=== PATIENT | female | born 1945 | race Caucasian/White ===

== ENCOUNTER 2020-09-24 19:45 | Emergency (ER) | payer MEDICARE ==
--- OUTSIDE RECORDS SUMMARY | 2020-09-24 19:51 | XMS REPORT | Continuity of Care Document ---
:1945 Author Organization [facility] t Address [address] [place] [address] Care Team Providers Name Role Phone Oz Strauss MD Attending Clinician Problems This patient has no known problems. Allergies, Adverse Reactions, Alerts This patient has no known allergies or adverse reactions. Medications This patient has no known medications. Procedures This patient has no known procedures. Encounters Start End Encounter Admission Attending Care Care Encounter Source Date/Time Date/Time Type Type Clinicians Facility Department ID 2020-09-18 2020-09-18 Refill [place] [facility] [id number] 00:00:00 00:00:00 , [facility] [id number] M s and [id number] Adult [id number] Primary [facility] 2019-11-01 2019-11-01 Refill [place] Yvan [id number] 00:00:00 00:00:00 , [facility] [id number] M s and [id number] Adult [id number] Primary [facility] 2019-10-24 2019-10-24 Refill [place] Yvan [id number] 00:00:00 00:00:00 , [facility] [id number] M s and [id number] Adult [id number] Primary [facility] Results This patient has no known results.
--- OUTSIDE RECORDS SUMMARY | 2020-09-24 19:51 | XMS REPORT | Summary of Care ---
:1945 Author Organization [facility] Address [address] [place] [id number] Care Team Providers Name Role Phone Oz Strauss MD Primary Care Provider Reason for Visit Reason Comments Refill Request Encounter Details Date Type Department Care Team Description 09/18/2020 Refill [facility] & Jeanie Strauss, Refill Request Adult Primary Care- Yvan ROMERO 2019 [facility] [address] [address] [place] [address] [place] [address] Allergies Active Allergy Reactions Severity Noted Date Comments Aspirin Unknown - See comments 09/09/2005 Penicillins Unknown - See comments 09/09/2005 documented as of this encounter (statuses as of 09/19/2020) Medications Medication Sig Dispensed Refills Start Date End Date Status docusate 100 mg Take 1 capsule by 30 capsule 3 07/06/2019 Active capsuleIndications: mouth daily. Constipation, unspecified constipation type albuterol (PROAIR Inhale 2 Puffs 0 Active HFA) 90 mcg/actuation every 6 (six) inhaler hours as needed for Wheezing or Shortness of Breath. lisinopril 20 mg Take 1 tablet by 30 tablet 3 11/02/2019 Active tabletIndications: mouth daily. Essential hypertension tiotropium (SPIRIVA Inhale 1 capsule 30 capsule 3 11/02/2019 Active WITH HANDIHALER) 18 daily. mcg inhalationIndications : Chronic obstructive pulmonary disease, unspecified COPD type documented as of this encounter (statuses as of 09/19/2020) Active Problems No known active problemsdocumented as of this encounter (statuses as of 09/19/2020) Social History Tobacco Use Types Packs/Day Years Used Date Current Every Day Smoker 1 60 Smokeless Tobacco: Never Used Comments: 1 pack a day Alcohol Use Drinks/Week oz/Week Comments Not Currently Sex Assigned at Date Recorded Not on file documented as of this encounter Last Filed Vital Signs Not on filedocumented in this encounter Miscellaneous Notes Telephone Encounter - Shagufta Matthews MA - 09/18/2020 2:42 PM 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 documented in this encounter Plan of Treatment Health Maintenance Due Date Last Done Comments HEPATITIS C (HCV) SCREEN 1945 Depression Screening 1957 DTaP,Tdap,and Td Vaccines (1 - Tdap) 1964 Breast Cancer Screening (MAMMOGRAM) 1985 COLON CANCER SCREENING ANNUAL FIT/FOBT 1995 COLON CANCER SCREENING FIT DNA EVERY 3 YEARS 1995 COLON CANCER SCREENING SIGMOIDOSCOPY EVERY 5 YEARS 1995 COLONOSCOPY 1995 Colorectal Cancer Screening 1995 Zoster Recombinant Vaccine (SHINGRIX) (1 of 2) 1995 LUNG CANCER SCREEN: Recommended for age 55-80 with 30 + 03/19/20 00 pack year history Medicare Wellness Visit 2010 Osteoporosis Screening 2010 PNEUMOCOCCAL VACCINES 65+ (1 of 1 - PPSV23) 2010 INFLUENZA VACCINE (#1) 2020 documented as of this encounter Results Not on filedocumented in this encounter Visit Diagnoses Diagnosis Essential hypertension Unspecified essential hypertension documented in this encounter Insurance Payer Benefit Plan / Subscriber ID Effective Phone Address T e Group Dates [place] [employer]ARP MEDICARE [id number] 2019-Pres Oz gant Adv HEALTHCARE - COMPLETE ent O MANAGED MEDICARE documented as of this encounter
[2020-09-24] MEDS ORDERED: NA CHLORIDE 0.9% 1,000 ML ONE (20:37)
--- NOTE | 2020-09-24 20:44 | RAD REPORT ---
EXAM DESCRIPTION: RAD - Chest Single View - 09/24/2020 8:25 pm CLINICAL HISTORY: CONGESTION COMPARISON: None TECHNIQUE: AP portable chest image was obtained 09/24/2020 8:25 pm . FINDINGS: Lungs are fibrotic. No focal mass, consolidation or failure. Heart and vasculature are nor mal. No measurable pleural effusion and no pneumothorax. No acute bony abnormality seen. No acute aor tic findings suspected. IMPRESSION: Fibrotic lung change with no acute cardiopulmonary finding.
--- NOTE | 2020-09-24 20:52 | RAD REPORT ---
EXAM DESCRIPTION: CT - Ct Stroke Brain Wo Cont - 09/24/2020 8:42 pm CLINICAL HISTORY: WEAKNESS, stroke-like symptoms COMPARISON: No comparisons TECHNIQUE: Axial 5 millimeter thick images of the head were obtained without IV contrast. All CT scans are performed using dose optimization technique as appropriate and may include automated exposure control or mA/KV adjustment according to patient size. FINDINGS: No intracranial hemorrhage, mass, or cerebral edema. No acute infarction identifiable. No cortical edema or sulcal effacement. Patient has very pronounced chronic ischemic change throughout t he cerebral white matter extending into each basal ganglia. Atrophy changes are present. Ventricles a re in proportion. Hinojosa matter-white matter differentiation is preserved.Arterial and physiologic calc ifications are present. Visualized portions of the mastoid air cells, paranasal sinuses, and orbits are unremarkable. Findings telephoned to Dr. Nloand 8:48 p.m. IMPRESSION: No CT evidence of acute intracranial process. Advanced chronic ischemic change and mild atrophy.
[2020-09-24 21:15] LABS: Absolute Lymphocytes (CBC) 1.3 K/uL (0.7-4.9); Basophils % 0.7 % (0-1.3); Hematocrit 44.3 % (36.0-45.0); Lymphocytes % 18.8 % (15.3-44.8); RBC Red Blood Cell Count 5.04 M/uL (3.86-4.86)
[2020-09-24 21:20] LABS: Protime INR 1.02
[2020-09-24 21:21] LABS: ALT/SGPT 29 U/L (12-78); AST/SGOT 18 U/L (15-37); Albumin 3.2 g/dL (3.4-5.0); Alkaline Phosphatase 98 U/L (45-117); BUN Blood Urea Nitrogen 11 mg/dL (7-18); Bicarbonate 26 mmol/L (21-32); Bilirubin Direct 0.1 mg/dL (0-0.2); Bilirubin Total 0.5 mg/dL (0.2-1.0); Glucose Level 99 mg/dL (74-106); Lipase 45 U/L (73-393); Magnesium 2.2 mg/dL (1.8-2.4); Potassium 3.5 mmol/L (3.5-5.1); Protein, Total 7.5 g/dL (6.4-8.2); Sodium Level 139 mmol/L (136-145); Troponin (Emerg Dept Use Only) < 0.02 ng/mL (0.0-0.045)
[2020-09-24 22:31] LABS: Urine Blood TRACE (NEG); Urine Glucose NEGATIVE (NEG); Urine Protein 2+ (NEG)
[2020-09-24 22:31] LABS: Urine Bacteria LOADED /HPF (<20)
[2020-09-24 22:32] LABS: Urine RBC NONE SEEN /HPF (NONE SEEN); Urine Urothelial Cells <5 /HPF (NONE SEEN)
[2020-09-24] MEDS ORDERED: CEFTRIAXONE/SWI 1gm 1 GM/10 ML SYR ONE (22:52)
[2020-09-24] MEDS ORDERED: HYDRALAZINE HCL 10 MG TABLET ONE (23:13)
--- NOTE | 2020-09-24 23:32 | EDPHYS ---
Physician Documentation [facility] Name: Yany Steinberg Age: 75 yrs Sex: Female : 1945 Arrival Date: 09/24/2020 Time: 19:50 Bed 3 Private MD: Linda Piper ED Physician Satya Noland HPI: 09/24 22:37 This 75 yrs old Female presents to ER via Wheelchair with complaints of ma2 General Weakness, Decreased Appetite. 22:37 Onset: The symptoms/episode began/occurred gradually, 2 day(s) ago. Severity of ma2 symptoms: At their worst the symptoms were very mild in the emergency department the symptoms are unchanged. The patient has experienced similar episodes in the past. Historical: - Allergies: 20:25 PENICILLINS; ca1 - Home Meds: 20:25 None [Active]; ca1 - PMHx: 20:25 Hypertension; CVA; ca1 - PSHx: 20:25 Hysterectomy; Appendectomy; Cholecystectomy; ca1 - Immunization history:: Pneumococcal vaccine is not up to date, Flu vaccine is not up to date. - Social history:: Smoking status: Patient denies any tobacco usage or history of. Patient/guardian denies using alcohol, street drugs, The patient lives with family. - Family history:: not pertinent. ROS: 22:37 Constitutional: Negative for fever, chills, and weight loss. ma2 22:37 All other systems are negative. Exam: 22:37 Constitutional: This is a well developed, well nourished patient who is awake, alert, ma2 and in no acute distress. Head/Face: Normocephalic, atraumatic. Chest/axilla: Normal chest wall appearance and motion. Nontender with no deformity. No lesions are appreciated. Cardiovascular: Regular rate and rhythm with a normal S1 and S2. No gallops, murmurs, or rubs. Normal PMI, no JVD. No pulse deficits. Respiratory: Lungs have equal breath sounds bilaterally, clear to auscultation and percussion. No rales, rhonchi or wheezes noted. No increased work of breathing, no retractions or nasal flaring. Abdomen/GI: Soft, non-tender, with normal bowel sounds. No distension or tympany. No guarding or rebound. No evidence of tenderness throughout. Skin: Warm, dry with normal turgor. Normal color with no rashes, no lesions, and no evidence of cellulitis. MS/ Extremity: Pulses equal, no cyanosis. Neurovascular intact. Full, normal range of motion. Neuro: Awake and alert, GCS 15, oriented to person, place, time, and situation. Cranial nerves II-XII grossly intact. Motor strength 5/5 in all extremities. Sensory grossly intact. Cerebellar exam normal. Normal gait. Psych: Awake, alert, with orientation to person, place and time. Behavior, mood, and affect are within normal limits. Vital Signs: 20:07 BP 168 / 99; Pulse 81; Resp 16 S; Temp 97.8(TE); Pulse Ox 96% on R/A; ca1 22:32 BP 170 / 97; Pulse 80; Resp 18; Pulse Ox 98% ; ea 23:00 BP 197 / 105; Pulse 71; Resp 18; Pulse Ox 98% on R/A; rv 09/25 00:00 BP 174 / 101; Pulse 73; Resp 16; Pulse Ox 99% on R/A; rv 00:22 BP 174 / 91; Pulse 76; Resp 16; Temp 98; Pulse Ox 98% on R/A; rv MDM: 09/24 22:37 Differential Diagnosis uti, dehydration, electrolytes abnormalities vs . Data reviewed: [facility] vital signs, nurses notes. Counseling: I had a detailed discussion with the patient and/or guardian regarding: the historical points, exam findings, and any diagnostic results supporting the discharge/admit diagnosis, the presence of at least one elevated blood pressure reading (>120/80) during this emergency department visit, the need for outpatient follow up. Response to treatment: the patient's symptoms have markedly improved after treatment. 09/24 20:07 Order name: Lipase; Complete Time: 21:36 [facility] 09/24 20:07 Order name: Hepatic Function; Complete Time: 21:36 [facility] 09/24 20:07 Order name: Magnesium; Complete Time: 21:36 [facility] 09/24 20:07 Order name: Troponin (emerg Dept Use Only); Complete Time: 21:36 [facility] 09/24 20:07 Order name: Basic Metabolic Panel; Complete Time: 21:36 [facility] 09/24 20:07 Order name: CBC with Diff; Complete Time: 21:36 [facility] 09/24 20:07 Order name: Protime (+inr); Complete Time: 21:36 [facility] 09/24 20:07 Order name: Ptt, Activated; Complete Time: 21:36 [facility] 09/24 20:07 Order name: CT Stroke Brain w/o Contrast; Complete Time: 21:13 [facility] 09/24 20:30 Order name: Glucose, Ancillary Testing; Complete Time: 21:13 [facility] 09/24 22:08 Order name: Urine Dipstick--Ancillary (enter results); Complete Time: 22:32 sg 09/24 22:09 Order name: Urine Microscopic Only; Complete Time: 22:33 sg 09/24 22:09 Order name: Urine Culture sg 09/24 20:07 Order name: Stroke CXR 1 View; Complete Time: 21:13 [facility] 09/24 20:07 Order name: Accucheck; Complete Time: 20:31 [facility] 09/24 20:07 Order name: Cardiac monitoring; Complete Time: 20:31 [facility] 09/24 20:07 Order name: EKG - Nurse/Tech; Complete Time: 20:31 [facility] 09/24 20:07 Order name: IV Saline Lock; Complete Time: 20:31 [facility] 09/24 20:07 Order name: Labs collected and sent; Complete Time: 20:31 [facility] 09/24 20:07 Order name: NPO; Complete Time: 20:31 [facility] 09/24 20:07 Order name: O2 Per Protocol; Complete Time: 20:31 [facility] 09/24 20:07 Order name: O2 Sat Monitoring; Complete Time: 20:31 [facility] 09/24 20:07 Order name: Stroke Swallow Screen; Complete Time: 20:56 [facility] 09/24 20:07 Order name: Urine Dipstick-Ancillary (obtain specimen); Complete Time: 22:08 hi2 MDM: 20:05 Patient medically screened. [facility] 09/24 20:07 Order name: Lipase; Complete Time: 21:36 [facility] 09/24 20:07 Order name: Hepatic Function; Complete Time: 21:36 [facility] 09/24 20:07 Order name: Magnesium; Complete Time: 21:36 [facility] 09/24 20:07 Order name: Troponin (emerg Dept Use Only); Complete Time: 21:36 [facility] 09/24 20:07 Order name: Basic Metabolic Panel; Complete Time: 21:36 [facility] 09/24 20:07 Order name: CBC with Diff; Complete Time: 21:36 [facility] 09/24 20:07 Order name: Protime (+inr); Complete Time: 21:36 [facility] 09/24 20:07 Order name: Ptt, Activated; Complete Time: 21:36 [facility] 09/24 20:07 Order name: CT Stroke Brain w/o Contrast; Complete Time: 21:13 [facility] 09/24 20:30 Order name: Glucose, Ancillary Testing; Complete Time: 21:13 [facility] 09/24 22:08 Order name: Urine Dipstick--Ancillary (enter results); Complete Time: 22:32 sg 09/24 22:09 Order name: Urine Microscopic Only; Complete Time: 22:33 sg 09/24 22:09 Order name: Urine Culture 09/24 20:07 Order name: Stroke CXR 1 View; Complete Time: 21:13 [facility] 09/24 20:07 Order name: Accucheck; Complete Time: 20:31 [facility] 09/24 20:07 Order name: Cardiac monitoring; Complete Time: 20:31 [facility] 09/24 20:07 Order name: EKG - Nurse/Tech; Complete Time: 20:31 [facility] 09/24 20:07 Order name: IV Saline Lock; Complete Time: 20:31 [facility] 09/24 20:07 Order name: Labs collected and sent; Complete Time: 20:31 [facility] 09/24 20:07 Order name: NPO; Complete Time: 20:31 [facility] 09/24 20:07 Order name: O2 Per Protocol; Complete Time: 20:31 [facility] 09/24 20:07 Order name: O2 Sat Monitoring; Complete Time: 20:31 [facility] 09/24 20:07 Order name: Stroke Swallow Screen; Complete Time: 20:56 [facility] 09/24 20:07 Order name: Urine Dipstick-Ancillary (obtain specimen); Complete Time: 22:08 hi2 Administered Medications: 20:31 Drug: NS 0.9% 1000 ml Route: IV; Rate: 125 ml/hr; Site: left antecubital; ea 22:44 Drug: Rocephin 1 grams Route: IV; Rate: calculated rate; Site: left antecubital; ea 23:00 Drug: HydrALAZINE 10 mg Route: PO; rv 09/25 00:08 Follow up: Response: No adverse reaction ea Disposition: 09/24/20 23:31 Discharged to Home. Impression: Cystitis, unspecified without hematuria. - Condition is Stable. - Discharge Instructions: Urinary Tract Infection, Adult. - Prescriptions for cefpodoxime 100 mg Oral Tablet - take 1 tablet by ORAL route every 12 hours for 10 days take with food; 20 tablet. - Medication Reconciliation Form, Thank You Letter, Antibiotic Education, Prescription Opioid Use form. - Follow up: Private Physician; When: Tomorrow; Reason: Continuance of care. Signatures: Dispatcher [employer] [facility] Merry Celetsin RN RN Satya Seals MD MD ma2 Bladimir Simms RN RN rv Carrillo, Dorene RN RN ca1 Corrections: (The following items were deleted from the chart) 09/24 20:16 20:05 Head Brain Wo Cont+CT.RAD.BRZ ordered. [facility] 09/25 00:24 09/24 23:31 09/24/2020 23:31 Discharged to Home. Impression: Cystitis, unspecified ea without hematuria. Condition is Stable. Discharge Instructions: Urinary Tract Infection, Adult. Prescriptions for cefpodoxime 100 mg Oral Tablet - take 1 tablet by ORAL route every 12 hours for 10 days take with food; 20 tablet. and Forms are Medication Reconciliation Form, Thank You Letter, Antibiotic Education, Prescription Opioid Use. Follow up: Private Physician; When: Tomorrow; Reason: Continuance of care. ma2
--- NOTE | 2020-09-24 23:32 | ER ---
Nurse's Notes [facility] Name: Yany Steinberg Age: 75 yrs Sex: Female : 1945 Arrival Date: 09/24/2020 Time: 19:50 Bed 3 Private MD: Linda Piper Diagnosis: Cystitis, unspecified without hematuria Presentation: 09/24 20:07 Chief complaint: Patient's son or daughter states: daughter: Last known normal was ca1 yesterday, she slept all day today, When I woke her up at 1700 she was just very weak and couldn't even sit up. She is lethargic. Pt A\T\Ox4. Reports weakness all over. No slurring of speech. No facial drooping. Denies fever. Daughter reports headache off and on x 2 weeks. Reports of History of Massive stroke in 2013. Coronavirus screen: Client denies travel out of the [place] in the last 14 days. At this time, the client does not indicate any symptoms associated with coronavirus-19. Ebola Screen: Patient negative for fever greater than or equal to 101.5 degrees Fahrenheit, and additional compatible Ebola Virus Disease symptoms Patient denies exposure to infectious person. Patient denies travel to an Ebola-affected area in the 21 days before illness onset. No symptoms or risks identified at this time. Initial Sepsis Screen: Does the patient meet any 2 criteria? No. Patient's initial sepsis screen is negative. Does the patient have a suspected source of infection? No. Patient's initial sepsis screen is negative. Risk Assessment: Do you want to hurt yourself or someone else? Patient reports no desire to harm self or others. Onset of symptoms was September 24, 2020. 20:07 Method Of Arrival: Wheelchair ca1 20:07 Acuity: FRANCISCO 2 ca1 Historical: - Allergies: 20:25 PENICILLINS; ca1 - Home Meds: 20:25 None [Active]; ca1 - PMHx: 20:25 Hypertension; CVA; ca1 - PSHx: 20:25 Hysterectomy; Appendectomy; Cholecystectomy; ca1 - Immunization history:: Pneumococcal vaccine is not up to date, Flu vaccine is not up to date. - Social history:: Smoking status: Patient denies any tobacco usage or history of. Patient/guardian denies using alcohol, street drugs, The patient lives with family. - Family history:: not pertinent. Screenin:28 Abuse screen: Denies threats or abuse. Nutritional screening: No deficits noted. ea Tuberculosis screening: No symptoms or risk factors identified. Fall Risk IV access (20 points). 20:35 The patient has not been NPO before screening. The patient is alert, able to follow ea commands. The patient does not exhibit slurred or garbled speech The patient is not exhibiting difficulty speaking. The patient does not exhibit difficulty understanding words. The patient is able to swallow own secretions with no drooling or need for suction. Patient tolerated one teaspoon of water. No drooling, immediate coughing, gurgling, or clearing of the throat was noted. The patient tolerated 90mL of water. No drooling, immediate coughing, gurgling, or clearing of the throat was noted. The patient passed the bedside swallow screening. Oral medications may be given as ordered. Contact Physician for further diet orders. Assessment: 20:28 General: Appears uncomfortable, Behavior is cooperative. Pain: Denies pain. Neuro: ea Level of Consciousness is awake, alert, obeys commands, Oriented to person, place, time, situation. Cardiovascular: Patient's skin is warm and dry. Respiratory: Airway is patent Respiratory effort is even, unlabored, Respiratory pattern is regular, symmetrical. Derm: Skin is dry, Skin is pale, Skin temperature is warm. 21:56 Reassessment: Francisca [id number]. ea 22:18 Reassessment: Patient and/or family updated on plan of care and expected duration. Pain ea level reassessed. Patient is alert, oriented x 3, equal unlabored respirations, skin warm/dry/pink. 22:46 Reassessment: Patient and/or family updated on plan of care and expected duration. Pain ea level reassessed. Patient is alert, oriented x 3, equal unlabored respirations, skin warm/dry/pink. 09/25 00:07 Reassessment: Patient and/or family updated on plan of care and expected duration. Pain ea level reassessed. Patient is alert, oriented x 3, equal unlabored respirations, skin warm/dry/pink. Awaiting on family for transport home. 00:23 Reassessment: Patient and/or family updated on plan of care and expected duration. Pain ea level reassessed. Patient is alert, oriented x 3, equal unlabored respirations, skin warm/dry/pink. Discharge instruction given to patient, verbalized the understanding of instruction. pt left ED via wheelchair tolerating well. Vital Signs: 09/24 20:07 BP 168 / 99; Pulse 81; Resp 16 S; Temp 97.8(TE); Pulse Ox 96% on R/A; ca1 22:32 BP 170 / 97; Pulse 80; Resp 18; Pulse Ox 98% ; ea 23:00 BP 197 / 105; Pulse 71; Resp 18; Pulse Ox 98% on R/A; rv 09/25 00:00 BP 174 / 101; Pulse 73; Resp 16; Pulse Ox 99% on R/A; rv 00:22 BP 174 / 91; Pulse 76; Resp 16; Temp 98; Pulse Ox 98% on R/A; rv ED Course: 09/24 19:50 Patient arrived in ED. am2 19:50 Linda Piper MD is Private Physician. am2 20:05 Satya Noland MD is Attending Physician. ma2 20:24 Triage completed. ca1 20:24 Stroke CXR 1 View In Process Unspecified. EDMS 20:25 Arm band placed on right wrist. ca1 20:27 Merry Celestin, ISAK is Primary Nurse. ea 20:28 Patient has correct armband on for positive identification. Placed in gown. Bed in low ea position. Call light in reach. Side rails up X2. monitor tech on. Pulse ox on. NIBP on. 20:28 Inserted saline lock: 22 gauge in left antecubital area, using aseptic technique. Blood ea collected. 20:42 CT Stroke Brain w/o Contrast In Process Unspecified. EDMS 09/25 00:15 No provider procedures requiring assistance completed. IV discontinued, intact, ea bleeding controlled, No redness/swelling at site. Pressure dressing applied. Administered Medications: 09/24 20:31 Drug: NS 0.9% 1000 ml Route: IV; Rate: 125 ml/hr; Site: left antecubital; ea 22:44 Drug: Rocephin 1 grams Route: IV; Rate: calculated rate; Site: left antecubital; ea 23:00 Drug: HydrALAZINE 10 mg Route: PO; rv 09/25 00:08 Follow up: Response: No adverse reaction ea Outcome: 09/24 23:31 Discharge ordered by . [email or web address] 09/25 00:23 Discharged to home via wheelchair, with family. ea Condition: stable Discharge instructions given to patient, Instructed on discharge instructions, follow up and referral plans. medication usage, Demonstrated understanding of instructions, follow-up care, medications, Prescriptions given X 1. 00:24 Patient left the ED. ea Signatures: Dispatcher [employer] EDMS CostaAkila martini 2 Merry Celestin RN RN Satya Seals MD MD ma2 Vicente, Ronaldo, RN RN rv Dorene Vizcaino RN RN ca1 Corrections: (The following items were deleted from the chart) 09/24 20:39 20:07 Chief complaint: Patient's son or daughter states: daughter: Last known normal ca1 was yesterday, she slept all day today, When I woke her up at 1700 she was just very weak and couldn't even sit up. She is lethargic. Pt A\T\Ox4. Reports weakness all over. No slurring of speech. No facial drooping. Denies fever. Daughter reports headache off and on x 2 weeks ca1
[2020-09-25 00:37] VITALS: BP 174/91; TEMP 98; O2SAT 98
== END 2020-09-25 00:24 | disposition home or self-care (01) ==
LOC: ER 19:45
DX: N30.90 Cystitis, unspecified without hematuria (principal); Z88.0 Allergy status to penicillin
CPT/HCPCS: 87088; 85025; 87086; 80048; 36415; 83735; 85610; 82947; 80076; 85730; 84484; 83690; 70450; 71045; J0696; J7030; 81003; 81015; 87077; 87186; 96374; 99284

== ENCOUNTER 2021-03-05 15:03 | Emergency (ER) | payer MEDICARE, OTHER ==
--- OUTSIDE RECORDS SUMMARY | 2021-03-05 15:05 | XMS REPORT | Continuity of Care Document ---
:1945 Author Organization [facility] t Address [address] [place] [address] Care Team Providers Name Role Phone Oz Strauss MD Attending Clinician Problems This patient has no known problems. Allergies, Adverse Reactions, Alerts This patient has no known allergies or adverse reactions. Medications This patient has no known medications. Procedures This patient has no known procedures. Encounters Start End Encounter Admission Attending Care Care Encounter Source Date/Time Date/Time Type Type Clinicians Facility Department ID 2020-09-24 2020-09-24 Refill [place] Yvan [id number] [id number] 00:00:00 00:00:00 , [facility] 350.1.13.10 M s and 4.2.7.2.686 Adult [id number] [address] 2020-09-18 2020-09-18 Refill [place] Yvan 1.2.840.114 [id number] 00:00:00 00:00:00 , [facility] 350.1.13.10 M s and 4.2.7.2.686 Adult [id number] [address] [facility] 2019-11-01 2019-11-01 Refill [place] Yvan [id number] 00:00:00 00:00:00 , [facility] 350.1.13.10 M s and [id number] Adult [id number] [address] 2019-10-24 2019-10-24 Refill [place] Y[facility] [id number] 00:00:00 00:00:00 [facility] 350.1.13.10 M s and [id number] Adult [id number] [facility] Results This patient has no known results.
--- NOTE | 2021-03-05 16:55 | RAD REPORT ---
EXAM DESCRIPTION: RAD - Hip Right 2 View - 03/05/2021 4:36 pm CLINICAL HISTORY: PAIN COMPARISON: No comparisonsNo comparisons FINDINGS: AP and frog-leg views of the right hip were obtained. There is no fracture or dislocation. Femoral head maintains smooth rounded contour. A few small subco rtical cysts are evident. No AVN identifiable. Joint space is narrowed. There are large spurs along t he arch thickened or margin of the acetabulum and the articular margin of the femoral head. No acute or destructive bony process seen. SI joint degenerative changes are mild. No periarticular mass or hematoma. 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 No fracture or acute finding identifiable.
--- NOTE | 2021-03-05 17:03 | RAD REPORT ---
EXAM DESCRIPTION: CT - Hip Right Wo Con - 03/05/2021 4:53 pm CLINICAL HISTORY: fall, r/o fracture, fall, pain out of proportion to exam findings COMPARISON: Hip Right 2 View dated 03/05/2021 TECHNIQUE: Axial noncontrast 2 millimeter thick images were obtained through the right hip joint wit h sagittal and coronal reformatted images generated and reviewed. The CT scan was performed using dose optimization techniques as appropriate to a performed exam incl uding one or more of the following: Automated exposure control, adjustment of the mA and/or kV accord ing to patient size (this includes techniques or standardized protocols for targeted exams where dose is matched to indication/reason for exam) and use of iterative reconstruction technique. FINDINGS: Inferior aspect of the right sacral ala and SI joint are intact. Subcortical degenerative cysts are present along the articular margin of the acetabulum and the femor al head. AVN is not suspected. There are prominent acetabular and femoral head marginal spurs. The luciano int space is narrowed. Imaged portion of the right hemipelvis shows no fracture. No proximal femur fracture identified. No periarticular mass or hematoma. IMPRESSION: Prominent right hip joint degenerative changes are present as detailed. No fracture or acute process identifiable.
--- NOTE | 2021-03-05 17:35 | EDPHYS ---
Physician Documentation [facility] Name: Yany Steinberg Age: 75 yrs Sex: Female : 1945 Arrival Date: 03/05/2021 Time: 15:40 Bed 13 Private MD: ED Physician Marcelo Toro HPI: 03/05 15:48 This 75 yrs old Female presents to ER via EMS with complaints of Hip Pain. jr8 15:48 The patient or guardian reports decreased range of motion, pain. that occurred at home, jr8 sustained from a fall, There is no obvious deformity, The patient is able to ambulate with assistance. The patient is able to bear partial body weight. There is no radiation of the patient's discomfort. The complaints affect the right hip. Onset: The symptoms/episode began/occurred acutely. Modifying factors: The symptoms are alleviated by nothing, the symptoms are aggravated by any movement, weight bearing. Associated signs and symptoms: Loss of consciousness: the patient experienced no loss of consciousness, Pertinent positives: None. Severity of symptoms: At their worst the symptoms were moderate, in the emergency department the symptoms are unchanged. The patient has not experienced similar symptoms in the past. The patient has not recently seen a physician. Patient stated that she had mechanical fall from tripping causing her to fall backward and land on right buttock. Pain to hip region since incident. Denies hitting head or neck. Denies LOC . Historical: - Allergies: 15:43 PENICILLINS; ss - PMHx: 15:43 CVA; Hypertension; ss - Immunization history:: Adult Immunizations up to date. - Social history:: Smoking status: Patient reports the use of cigarette tobacco products, smokes one pack cigarettes per day. ROS: 15:48 Eyes: Negative for injury, pain, redness, and discharge, ENT: Negative for injury, jr8 pain, and discharge, Neck: Negative for injury, pain, and swelling, Cardiovascular: Negative for chest pain, palpitations, and edema, Respiratory: Negative for shortness of breath, cough, wheezing, and pleuritic chest pain, Abdomen/GI: Negative for abdominal pain, nausea, vomiting, diarrhea, and constipation, Back: Negative for injury and pain, Skin: Negative for injury, rash, and discoloration, Neuro: Negative for headache, weakness, numbness, tingling, and seizure. 15:48 MS/extremity: Positive for decreased range of motion, pain, tenderness, of the right leg. Exam: 15:48 Constitutional: This is a well developed, well nourished patient who is awake, alert, jr8 and in no acute distress. Cardiovascular: Regular rate and rhythm with a normal S1 and S2. No gallops, murmurs, or rubs. Normal PMI, no JVD. No pulse deficits. Respiratory: Lungs have equal breath sounds bilaterally, clear to auscultation and percussion. No rales, rhonchi or wheezes noted. No increased work of breathing, no retractions or nasal flaring. Back: No spinal tenderness. No costovertebral tenderness. Full range of motion. Skin: Warm, dry with normal turgor. Normal color with no rashes, no lesions, and no evidence of cellulitis. Neuro: Awake and alert, GCS 15, oriented to person, place, time, and situation. Cranial nerves II-XII grossly intact. Motor strength 5/5 in all extremities. Sensory grossly intact. 15:48 Musculoskeletal/extremity: Extremities: grossly normal except: noted in the right hip: decreased ROM, pain, tenderness, ROM: full active range of motion, limited passive range of motion, limited active range of motion due to pain, in the right leg, limited passive range of motion due to pain, in the right leg, Circulation is intact in all extremities. Sensation intact. Vital Signs: 15:40 BP 163 / 94; Pulse 73; Resp 16; Temp 98.4(O); Pulse Ox 98% on R/A; Pain 8/10; ss 16:30 BP 147 / 96; Pulse 61; Resp 17; Pulse Ox 97% ; bp 17:29 BP 169 / 94; Pulse 64; Resp 17; Pulse Ox 97% ; bp MDM: 15:41 Patient medically screened. jr8 17:33 Data reviewed: vital signs, nurses notes, radiologic studies, CT scan, plain films. jr8 Data interpreted: Pulse oximetry: on room air is 97 %. Interpretation: normal. Counseling: I had a detailed discussion with the patient and/or guardian regarding: the historical points, exam findings, and any diagnostic results supporting the discharge/admit diagnosis, radiology results, the need for outpatient follow up, a family practitioner, a orthopedic surgeon, to return to the emergency department if symptoms worsen or persist or if there are any questions or concerns that arise at home. 03/05 15:41 Order name: XRAY Hip RIGHT 2 view; Complete Time: 17:33 jr8 03/05 16:34 Order name: Hip Right Wo Con; Complete Time: 17:33 EDMS Administered Medications: No medications were administered Disposition: 03/06 08:43 Co-signature as Attending Physician, Marcelo Toro MD I agree with the assessment and kdr plan of care. Disposition Summary: 03/05/21 17:34 Discharge Ordered Location: Home jr8 Problem: new jr8 Symptoms: have improved jr8 Condition: Stable jr8 Diagnosis - Contusion of right hip jr8 Followup: jr8 - With: Tristian Diaz MD - When: 1 week - Reason: Recheck today's complaints, Continuance of care, Re-evaluation by your physician Discharge Instructions: - Discharge Summary Sheet jr8 - Contusion jr8 - Hip Pain jr8 Forms: - Medication Reconciliation Form jr8 - Thank You Letter jr8 - Antibiotic Education jr8 - Prescription Opioid Use jr8 Prescriptions: - acetaminophen-codeine 300-15 mg Oral tablet - take 1 tablet by ORAL route every 4 hours; 12 tablet; Refills: 0, Product jr8 Selection Permitted Signatures: Dispatcher [employer] EDMarcelo Nicole MD MD [facility] Radha Dee RN RN ss Kevan Guerra PA PA jr8 Corrections: (The following items were deleted from the chart) 03/05 16:34 16:25 CT RIGHT HIP WO CONTRAST ordered. EDMS EDMS
--- NOTE | 2021-03-05 17:35 | ER ---
Nurse's Notes [facility] Name: Yany Steinberg Age: 75 yrs Sex: Female : 1945 Arrival Date: 03/05/2021 Time: 15:40 Bed 13 Private MD: Diagnosis: Contusion of right hip Presentation: 03/05 15:40 Chief complaint: EMS states: Fall from standing this morning between 1-2 am. Pt denies ss LOC. Reports that she did not get dizzy, but just lost her balance. C/o R hip pain. Coronavirus screen: Client denies travel out of the [place] in the last 14 days. Ebola Screen: Patient denies exposure to infectious person. Patient denies travel to an Ebola-affected area in the 21 days before illness onset. Initial Sepsis Screen: Does the patient meet any 2 criteria? No. Patient's initial sepsis screen is negative. Does the patient have a suspected source of infection? No. Patient's initial sepsis screen is negative. Risk Assessment: Do you want to hurt yourself or someone else? Patient reports no desire to harm self or others. Onset of symptoms was March 05, 2021. 15:40 Method Of Arrival: EMS: [facility] 15:40 Acuity: FRANCISCO 3 ss Triage Assessment: 15:45 General: Appears distressed, uncomfortable, Behavior is cooperative, appropriate for bp age, anxious. Pain: Complains of pain in right hip. EENT: No deficits noted. Neuro: Level of Consciousness is awake, alert, obeys commands, Oriented to Appropriate for age. Cardiovascular: Rhythm is sinus rhythm. Respiratory: No deficits noted. GI: No signs and/or symptoms were reported involving the gastrointestinal system. : No signs and/or symptoms were reported regarding the genitourinary system. Derm: No deficits noted. Musculoskeletal: No deficits noted. Historical: - Allergies: 15:43 PENICILLINS; ss - PMHx: 15:43 CVA; Hypertension; ss - Immunization history:: Adult Immunizations up to date. - Social history:: Smoking status: Patient reports the use of cigarette tobacco products, smokes one pack cigarettes per day. Screenin:45 Abuse screen: Denies threats or abuse. Denies injuries from another. Nutritional bp screening: No deficits noted. Tuberculosis screening: No symptoms or risk factors identified. Fall Risk None identified. Assessment: 15:45 General: SEE TRIAGE NOTE. bp 16:30 Reassessment: No changes from previously documented assessment. Patient and/or family bp updated on plan of care and expected duration. Pain level reassessed. 17:29 Reassessment: Patient appears in no apparent distress at this time. No changes from bp previously documented assessment. Patient and/or family updated on plan of care and expected duration. Pain level reassessed. PT RETURNED FROM CT. DISPO PENDING. Vital Signs: 15:40 BP 163 / 94; Pulse 73; Resp 16; Temp 98.4(O); Pulse Ox 98% on R/A; Pain 8/10; ss 16:30 BP 147 / 96; Pulse 61; Resp 17; Pulse Ox 97% ; bp 17:29 BP 169 / 94; Pulse 64; Resp 17; Pulse Ox 97% ; bp ED Course: 15:40 Patient arrived in ED. ld1 15:40 Tre Corcoran, ISAK is Primary Nurse. bp 15:41 Kevan Guerra PA is PHCP. jr8 15:41 Marcelo Toro MD is Attending Physician. jr8 15:43 Triage completed. ss 15:43 Arm band placed on left wrist. ss 15:45 Patient has correct armband on for positive identification. Bed in low position. Call bp light in reach. Side rails up X2. Adult w/ patient. 16:36 XRAY Hip RIGHT 2 view In Process Unspecified. EDMS 16:53 Hip Right Wo Con In Process Unspecified. EDMS 17:34 Tristian Diaz MD is Referral Physician. jr8 18:00 No provider procedures requiring assistance completed. IV discontinued, intact, ss bleeding controlled, No redness/swelling at site. Pressure dressing applied. Administered Medications: No medications were administered Outcome: 17:34 Discharge ordered by . jr8 18:00 Discharged to home via wheelchair, with family. 18:00 Condition: good 18:00 Discharge instructions given to patient, family, Instructed on discharge instructions, follow up and referral plans. medication usage, Demonstrated understanding of instructions, follow-up care, medications, Prescriptions given X 1. 18:01 Patient left the ED. ss Signatures: Dispatcher [employer] EDSC Radha Dee RN RN Kevan Guerra PA PA jr8 Tre Corcoran, RN RN bp Seema Hinds RN RN ld1 Corrections: (The following items were deleted from the chart) 17:30 17:29 Pulse 64bpm; Resp 17bpm; Pulse Ox 97%; bp bp
[2021-03-05 18:12] VITALS: TEMP 98.4
[2021-03-05 18:14] VITALS: O2SAT 97
[2021-03-05 18:15] VITALS: BP 169/94
== END 2021-03-05 18:01 | disposition home or self-care (01) ==
LOC: ER 15:03
DX: S70.01XA Contusion of right hip, initial encounter (principal); W01.0XXA Fall on same level from slipping, tripping and stumbling without subsequent striking against object, initial encounter; Y93.01 Activity, walking, marching and hiking; Z86.73 Personal history of transient ischemic attack (TIA), and cerebral infarction without residual deficits; I10 Essential (primary) hypertension; F17.210 Nicotine dependence, cigarettes, uncomplicated
CPT/HCPCS: 73700

== ENCOUNTER 2022-07-10 11:50 | Observation (INO) | payer OTHER ==
--- OUTSIDE RECORDS SUMMARY | 2022-07-10 11:55 | XMS REPORT | Continuity of Care Document ---
:1945 Author Organization [facility] t Address [address] [place] [address] Care Team Providers Name Role Phone Susan Strauss MD Attending Clinician [phone] Payers Payer Name Policy Type Policy Number Effective Date Expiration Date S ource Problems Condition Condition Condition Status Onset Resolution Last Treating Co mments Source Name Details Category Date Date Treatment Clinician Date No known No known Disease Unive rs active active ity of problems problems [facility] Allergies, Adverse Reactions, Alerts Allergy Allergy Status Severity Reaction(s) Onset Inactive Treating Comm ents Source Name Type Date Date Clinician Aspirin Propensi Active Unknown - 2005-0 Univ ers ty to See comments 1-04 ity of adverse 00:00: [place] reaction 00 [facility] Penicill Propensi Active Unknown - 2005-0 Uni vers ins ty to See comments 1-04 ity of adverse 00:00: [place] reaction 00 [facility] Social History Social Habit Start Date Stop Date Quantity Comments Source Sex Assigned At Universit y of [facility] Tobacco use and 2019-07-19 2019-07-19 Never used Universit y of exposure 00:00:00 00:00:00 [facility] Cigarettes smoked 2019-07-19 2019-07-19 Univers ity of current (pack per 00:00:00 00:00:00 [facility] ) - Reported Branch Cigarette 2019-07-19 2019-07-19 University of pack-years 00:00:00 00:00:00 [facility] Alcohol intake 2019-07-19 2019-07-19 Ex-drinker [facility] 00:00:00 00:00:00 (finding) [facility] Tobacco Comment 2019-07-06 2019-07-06 1 pack a day Univers ity of 00:00:00 00:00:00 [facility] Smoking Status Start Date Stop Date Source Current every day smoker 2019-07-19 00:00:00 Uni versity of [facility] Medications Ordered Filled Start Stop Current Ordering Indication Dosage Frequency Signature Comments Components Source Medication Medication Date Date Medication? Clinician (SIG) Name Name lisinopril 2019-0 Yes [id number] 20mg Take 1 U nivers 20 mg 2-27 tablet by ity of tablet 00:00: mouth [place] 00 daily. Medical Branch tiotropium 0 Yes [id number] 18ug Inhale 1 Univers (SPIRIVA 2-27 capsule ity of WITH 00:00: daily. [place] HANDIHALER) 00 Medical 18 mcg Branch inhalation lisinopril 0 Yes [id number] 20mg Take 1 U nivers 20 mg 2-27 tablet by ity of tablet 00:00: mouth [place] 00 daily. Medical Branch tiotropium 0 Yes [id number] 18ug Inhale 1 Univers (SPIRIVA 2-27 capsule ity of WITH 00:00: daily. [place] HANDIHALER) 00 Medical 18 mcg Branch inhalation lisinopril 0 Yes [id number] 20mg Take 1 U nivers 20 mg 2-27 tablet by ity of tablet 00:00: mouth [place] 00 daily. Medical Branch tiotropium 0 Yes [id number] 18ug Inhale 1 Univers (SPIRIVA 2-27 capsule ity of WITH 00:00: daily. [place] HANDIHALER) 00 Medical 18 mcg Branch inhalation albuterol 2018-09 Yes 2{puff} Inhale 2 U nivers (PROAIR 1-13 Puffs ity of HFA) 90 16:43: every 6 [place] mcg/actuati 48 (six) Medical on inhaler hours as Branc h needed for Wheezing or Shortness of Breath. albuterol 2018-09 Yes 2{puff} Inhale 2 U nivers (PROAIR 1-13 Puffs ity of HFA) 90 16:43: every 6 [place] mcg/actuati 48 (six) Medical on inhaler hours as Branc h needed for Wheezing or Shortness of Breath. albuterol 2018-09 Yes 2{puff} Inhale 2 U nivers (PROAIR 1-13 Puffs ity of HFA) 90 16:43: every 6 [place] mcg/actuati 48 (six) Medical on inhaler hours as Branc h needed for Wheezing or Shortness of Breath. albuterol 2018-09 Yes 2{puff} Inhale 2 U nivers (PROAIR 1-13 Puffs ity of HFA) 90 16:43: every 6 [place] mcg/actuati 48 (six) Medical on inhaler hours as Branc h needed for Wheezing or Shortness of Breath. tiotropium 2018-09 Yes [id number] 1{puff} Inhale 1 Univers bromide 1-13 Puff ity of (SPIRIVA 00:00: daily. [place] RESPIMAT) 00 Medical 2.5 Branch mcg/actuati on Mist lisinopril 2018-09 Yes [id number] 20mg Take 1 U nivers 20 mg 1-13 tablet by ity of tablet 00:00: mouth [place] 00 daily. Medical Branch tiotropium 2018-09 2020- No [id number] 1{puff} Inhale 1 Univers bromide 1-13 02-27 Puff ity of (SPIRIVA 00:00: 00:00 daily. [place] RESPIMAT) 00 :00 Medical 2.5 Branch mcg/actuati on Mist lisinopril 2018-09 2020- No [id number] 20mg Take 1 Univers 20 mg 1-13 02-27 tablet by ity of tablet 00:00: 00:00 mouth [place] 00 :00 daily. Medical Branch docusate 2018-09 Yes [id number] 100mg Take 1 Un zoltan 100 mg 0-31 capsule by ity of capsule 00:00: mouth [place] 00 daily. Medical Branch docusate 2018-09 Yes [id number] 100mg Take 1 Un zoltan 100 mg 0-31 capsule by ity of capsule 00:00: mouth [place] 00 daily. Medical Branch docusate 2018-09 Yes [id number] 100mg Take 1 Un zoltan 100 mg 0-31 capsule by ity of capsule 00:00: mouth [place] 00 daily. Medical Branch docusate 2018-09 Yes [id number] 100mg Take 1 Un zoltan 100 mg 0-31 capsule by ity of capsule 00:00: mouth [place] 00 daily. Medical Branch Procedures This patient has no known procedures. Encounters Start End Encounter Admission Attending Care Care Encounter Source Date/Time Date/Time Type Type Clinicians Facility Department ID 2020-09-24 2020-09-24 Refill [place] Yvan 1.2.840.114 [id number] 00:00:00 00:00:00 , [facility] 350.1.13.10 M s and 4.2.7.2.686 Adult [id number] [address] 2020-09-24 2020-09-24 Refill [place] Yvan 1.2.840.114 [id number] [facility] 00:00:00 00:00:00 , [facility] 350.1.13.10 ity [place] [id number] [address] 2020-09-18 2020-09-18 Refill [place] Yvan 1.2.840.114 [id number] 00:00:00 00:00:00 , [facility] 350.1.13.10 M s and 4.2.7.2.686 Adult [id number] [address] 2020-09-18 2020-09-18 Refill [place] Yvan 1.2.840.114 [id number] [facility] 00:00:00 00:00:00 , [facility] 350.1.13.10 ity of [place] and [place]2.[place] [id number] [address] 2019-11-01 2019-11-01 Refill Ernul Yvan 1.2.840.114 [id number] 00:00:00 00:00:00 , [facility] 350.1.13.10 M s and 4.2.7.2.686 Adult [id number] [address] 2019-11-01 2019-11-01 Refill [place] Yvan 1.2.840.114 [id number] [facility] 00:00:00 00:00:00 , [facility] 350.1.13.10 ity of [place] and [place]2.[place] [id number] [address] 2019-10-24 2019-10-24 Refill Rica Santoro 1.2.840.114 [id number] [facility] 00:00:00 00:00:00 , [facility] 350.1.13.10 ity [place] and [place]2.[place] [id number] [address] 2019-10-24 2019-10-24 Refill Rica Santoro 1.2.840.114 [id number] 00:00:00 00:00:00 , [facility] 350.1.13.10 M s and 4.2.7.2.686 Adult [id number] Primary [address] [place] [address] Clinic Results This patient has no known results.
[2022-07-10 12:32] LABS: Urine Blood Negative (Negative); Urine Glucose Negative (Negative); Urine Protein Negative (Negative); Urine Specific Gravity 1.015 (1.005-1.030)
--- NOTE | 2022-07-10 13:01 | RAD REPORT ---
EXAM DESCRIPTION: CT - Head Brain Wo Cont - 07/10/2022 12:53 pm CLINICAL HISTORY: Dizziness COMPARISON: 2020 TECHNIQUE: Computed axial tomography of the head was obtained. IV contrast was not requested. All CT scans are performed using dose optimization technique as appropriate and may include automated exposure control or mA/KV adjustment according to patient size. FINDINGS: An intracranial bleed is not seen . The ventricles are normal in caliber. No extra-axial fluid collection is noted. Moderate low-density areas within periventricular, deep and subcortical white matter likely represent ischemic changes secondary to small vessel disease. Fluid within the sinuses/ mastoids is not seen. IMPRESSION: No acute intracranial abnormality is seen. If patient's symptoms persist MRI of the bra in would be recommended.
[2022-07-10 13:04] LABS: Absolute Lymphocytes (CBC) 2.3 K/uL (0.7-4.9); Hematocrit 42.3 % (36.0-45.0); MCV 90.4 fL (80-100); MPV 7.8 fL (7.6-11.3); RBC Red Blood Cell Count 4.68 M/uL (3.86-4.86)
[2022-07-10 13:09] LABS: Protime INR 0.88
[2022-07-10 13:21] LABS: Magnesium 2.2 mg/dL (1.8-2.4); Potassium 3.4 mmol/L (3.5-5.1); Troponin High Sensitivity 13.9 pg/mL (<58.9)
[2022-07-10] MEDS ORDERED: NA CHLORIDE 0.9% 50 ML IV ONE (13:44)
[2022-07-10] MEDS ORDERED: CEFTRIAXONE 1000 MG/VIAL ONE (13:44)
[2022-07-10] MEDS ORDERED: ONDANSETRON 4 MG/2 ML VIAL IV PRN (14:29)
[2022-07-10] MEDS ORDERED: ACETAMINOPHEN 500 MG TAB PO PRN (14:29)
[2022-07-10] MEDS ORDERED: MORPHINE 2 MG/ML SYR IV PRN (14:29)
--- NOTE | 2022-07-10 14:29 | ER ---
Nurse's Notes [facility] Name: Yany Steinberg Age: 77 yrs Sex: Female : 1945 Arrival Date: 07/10/2022 Time: 11:55 Bed 20 Private MD: Diagnosis: UTI/ Urinary tract infection, site not specified;Altered mental status, unspecified;Muscle weakness (generalized) Presentation: 07/10 12:18 Chief complaint: Patient states: feeling 'lethargic' since Wednesday07/07/22. Stated vg1 fell twice yesterday and hit the right side of head, denies blood thinners. Pt denies h/a, CP, or NV at this time. Coronavirus screen: Vaccine status: Patient reports being unvaccinated. Client denies travel out of the [place] in the last 14 days. Ebola Screen: Patient negative for fever greater than or equal to 101.5 degrees Fahrenheit, and additional compatible Ebola Virus Disease symptoms. Initial Sepsis Screen: Does the patient meet any 2 criteria? No. Patient's initial sepsis screen is negative. Does the patient have a suspected source of infection? No. Patient's initial sepsis screen is negative. Risk Assessment: Do you want to hurt yourself or someone else? Patient reports no desire to harm self or others. Onset of symptoms was July 07, 2022. 12:18 Method Of Arrival: Ambulatory vg1 12:18 Acuity: FRANCISCO 3 vg1 Triage Assessment: 12:21 The onset of the patients symptoms was. General: Appears in no apparent distress. vg1 uncomfortable, Behavior is cooperative. Pain: Denies pain. EENT: No signs and/or symptoms were reported regarding the EENT system. Neuro: Level of Consciousness is awake, alert, obeys commands, Oriented to person, place, time, situation, Heater Installer are equal bilaterally Moves all extremities. Gait is shuffling, Speech is normal, Facial symmetry appears normal, Denies weakness blurred vision dizziness, headache. Cardiovascular: Patient's skin is warm and dry. Respiratory: Airway is patent Respiratory effort is even, unlabored. GI: Patient currently denies nausea, vomiting. Historical: - Allergies: 12:21 PENICILLINS; vg1 - Home Meds: 12:21 losartan oral [Active]; Albuterol Inhl [Active]; vg1 - PMHx: 12:21 CVA; Hypertension; vg1 - Immunization history:: Client reports having NOT received the Covid vaccine. - Social history:: Smoking status: Patient reports the use of cigarette tobacco products, smokes one pack cigarettes per day. - Family history:: not pertinent. - Hospitalizations: : No recent hospitalization is reported. Screenin:22 Abuse screen: Denies threats or abuse. Denies injuries from another. Nutritional mb8 screening: No deficits noted. Tuberculosis screening: No symptoms or risk factors identified. Fall Risk Fall in past 12 months (25 points). Secondary diagnosis (15 points) IV access (20 points). Ambulatory Aid- None/Bed Rest/Nurse Assist (0 pts). Gait- Weak (10 pts.). Mental Status- Oriented to own ability (0 pts). Total Mena Fall Scale indicates High Risk Score (45 or more points). Fall prevention measures have been instituted. Side Rails Up X 2 Placed Close to Nursing Station Frequent Obs/Assessments Occuring Family Present and informed to notify staff if the need to leave the bedside As available patient and family educated on Fall Prevention Program and Strategies. Assessment: 12:21 Pain: Denies pain. Neuro: Level of Consciousness is awake, alert, obeys commands, mb8 Oriented to person, place, time, situation, Appropriate for age Gait is unsteady, Speech is normal, Reports weakness since 07-07-22. 13:46 Reassessment: Patient and/or family updated on plan of care and expected duration. Pain mb8 level reassessed. Patient is alert, oriented x 3, equal unlabored respirations, skin warm/dry/pink. Vital Signs: 12:18 BP 185 / 91; Pulse 76; Resp 16; Pulse Ox 100% ; Weight 74.84 kg; Height 5 ft. 5 in. vg1 (165.10 cm); Pain 0/10; 13:00 BP 170 / 94; Pulse 69; Resp 20; Temp 98.7; Pulse Ox 100% on R/A; Pain 0/10; mb8 13:46 BP 174 / 87; Pulse 69; Resp 16; Pulse Ox 99% ; Pain 0/10; mb8 12:18 Body Mass Index 27.46 (74.84 kg, 165.10 cm) vg1 Vitals: 13:00 Cardiac Rhythm Assessment Sinus rhythm. mb8 13:46 Cardiac Rhythm Assessment Sinus rhythm. 8 ED Course: 11:55 Patient arrived in ED. rg4 12:21 Brady Morillo, RN is Primary Nurse. mb8 12:21 Triage completed. vg1 12:22 Patient has correct armband on for positive identification. Bed in low position. Call mb8 light in reach. Side rails up X2. Client placed on continuous cardiac and pulse oximetry monitoring. NIBP monitoring applied. 12:22 No provider procedures requiring assistance completed. Inserted saline lock: 20 gauge mb8 in left antecubital area, using aseptic technique. Blood collected. 12:34 Enrique Dawson MD is Attending Physician. rn 12:[address] via wheelchair. mb8 12:55 CT Head Brain wo Cont In Process Unspecified. EDMS 12:[address]. mb8 14:27 Satya Obando MD is Hospitalizing Provider. rn Administered Medications: 13:46 Drug: Rocephin (cefTRIAXone) 1 grams Route: IV; Rate: calculated rate; Site: left mb8 antecubital; 14:15 Follow up: IV Status: Completed infusion mb8 14:30 Drug: Nicoderm CQ Patch 21 mg/24 hr 1 patches Route: Transdermal; Site: affected area; mb8 Medication: 12:21 VIS not applicable for this client. mb8 Outcome: 14:27 Decision to Hospitalize by Provider. rn 16:19 Admitted to Med/surg accompanied by tech, via wheelchair, with chart, Report called to mb8 kaylah 16:19 Condition: stable 16:42 Patient left the ED. 8 Signatures: Dispatcher [employer] EDSC Enrique Dawson MD MD rn Garcia, Rubi rg4 Slime Briscoe RN RN vg1 Brady Morillo, RN RN 8
--- NOTE | 2022-07-10 14:29 | EDPHYS ---
Physician Documentation [facility] Name: Yany Steinberg Age: 77 yrs Sex: Female : 1945 Arrival Date: 07/10/2022 Time: 11:55 Bed 20 Private MD: ED Physician Enrique Dawson HPI: 07/10 14:24 This 77 yrs old Female presents to ER via Ambulatory with complaints of Weakness, rn lethargic, falls, High Blood Pressure. 14:24 The patient presents to the emergency department with weakness of the entire body, rn generalized weakness. Onset: The symptoms/episode began/occurred 2 day(s) ago. Associated signs and symptoms: Pertinent positives: altered mental status, weakness, Pertinent negatives: fever, seizure. Severity of symptoms: At their worst the symptoms were moderate in the emergency department the symptoms are unchanged. Current symptoms:. The patient has not experienced similar symptoms in the past. Brought in by daughter for lethargy and falling for last 2 days, has hit head, no LOC, not on blood thinners. . Historical: - Allergies: 12:21 PENICILLINS; vg1 - Home Meds: 12:21 losartan oral [Active]; Albuterol Inhl [Active]; vg1 - PMHx: 12:21 CVA; Hypertension; vg1 - Immunization history:: Client reports having NOT received the Covid vaccine. - Social history:: Smoking status: Patient reports the use of cigarette tobacco products, smokes one pack cigarettes per day. - Family history:: not pertinent. - Hospitalizations: : No recent hospitalization is reported. ROS: 14:24 Constitutional: Negative for fever, chills, and weight loss, Eyes: Negative for injury, rn pain, redness, and discharge, ENT: Negative for injury, pain, and discharge, Cardiovascular: Negative for chest pain, palpitations, and edema, Respiratory: Negative for shortness of breath, cough, wheezing, and pleuritic chest pain, Abdomen/GI: Negative for abdominal pain, nausea, vomiting, diarrhea, and constipation, Back: Negative for injury and pain, MS/Extremity: Negative for injury and deformity, Skin: Negative for injury, rash, and discoloration, Neuro: Negative for headache, numbness, tingling, and seizure. Exam: 14:24 Constitutional: This is a well developed, well nourished patient who is awake, alert, rn and in no acute distress. Head/Face: Normocephalic, atraumatic. Eyes: Periorbital areas with no swelling, redness, or edema. Cardiovascular: Regular rate and rhythm. No pulse deficits. Respiratory: No increased work of breathing, no retractions or nasal flaring. Abdomen/GI: Soft, non-tender Skin: Warm, dry MS/ Extremity: Pulses equal, no cyanosis. Neuro: Awake and alert, GCS 15, oriented to person, place, time, and situation. Cranial nerves II-XII grossly intact. Motor strength 4/5 in all extremities. Sensory grossly intact. 15:10 ECG was reviewed by the Attending Physician. rn Vital Signs: 12:18 BP 185 / 91; Pulse 76; Resp 16; Pulse Ox 100% ; Weight 74.84 kg; Height 5 ft. 5 in. vg1 (165.10 cm); Pain 0/10; 13:00 BP 170 / 94; Pulse 69; Resp 20; Temp 98.7; Pulse Ox 100% on R/A; Pain 0/10; mb8 13:46 BP 174 / 87; Pulse 69; Resp 16; Pulse Ox 99% ; Pain 0/10; mb8 12:18 Body Mass Index 27.46 (74.84 kg, 165.10 cm) vg1 MDM: 12:34 Patient medically screened. rn 14:24 Data reviewed: vital signs, nurses notes, lab test result(s), radiologic studies, CT rn scan, and as a result, I will admit patient. Counseling: I had a detailed discussion with the patient and/or guardian regarding: the historical points, exam findings, and any diagnostic results supporting the discharge/admit diagnosis, lab results, radiology results, the need for further work-up and treatment in the hospital. Response to treatment: the patient's symptoms have mildly improved after treatment, and as a result, I will admit patient. Admission orders: after a detailed discussion of the patient's condition and case, the admit orders are written by me. 07/10 12:32 Order name: Urine Dipstick-Ancillary; Complete Time: 13:23 EDMS 07/10 12:39 Order name: Basic Metabolic Panel; Complete Time: 13:23 rn 07/10 12:39 Order name: CBC with Diff; Complete Time: 13:23 rn 07/10 12:39 Order name: Magnesium; Complete Time: 13:23 rn 07/10 12:39 Order name: Protime (+inr); Complete Time: 13:23 rn 07/10 12:39 Order name: Ptt, Activated; Complete Time: 13:23 rn 07/10 12:39 Order name: Troponin High Sensitivity; Complete Time: 13:23 rn 07/10 12:40 Order name: Blood Culture Adult (2) rn 07/10 12:40 Order name: Urine Culture rn 07/10 14:34 Order name: CBC with Automated Diff EDMS 07/10 14:34 Order name: CBC with Automated Diff EDMS 07/10 14:34 Order name: Comprehensive Metabolic Panel EDMS 07/10 14:34 Order name: Comprehensive Metabolic Panel EDMS 07/10 14:35 Order name: Cortisol EDMS 07/10 12:32 Order name: Urine Dipstick-Ancillary (obtain specimen); Complete Time: 12:32 mb8 07/10 12:39 Order name: CT Head Brain wo Cont; Complete Time: 13:23 rn 07/10 12:39 Order name: EKG; Complete Time: 12:40 rn 07/10 14:34 Order name: Heart Healthy EDMS 07/10 14:35 Order name: Folic Acid, (Folate) EDMS 07/10 14:35 Order name: Iron EDID 07/10 14:35 Order name: Magnesium EDMS 07/10 14:35 Order name: NT PRO-BNP EDMS 07/10 14:35 Order name: Procalcitonin EDID 07/10 14:35 Order name: T4 Free EDID 07/10 14:35 Order name: Thyroid Stimulating Hormone EDID 07/10 14:35 Order name: Vitamin B12 Level EDMS 07/10 14:39 Order name: SARS RAPID eb 07/10 15:17 Order name: SARS-COV-2 Antigen Rapid EDID 07/10 12:39 Order name: Cardiac monitoring; Complete Time: 12:53 rn 07/10 12:39 Order name: EKG - Nurse/Tech; Complete Time: 13:36 rn 07/10 12:39 Order name: IV Saline Lock; Complete Time: 12:53 rn 07/10 12:39 Order name: Labs collected and sent; Complete Time: 12:53 rn 07/10 12:39 Order name: NPO; Complete Time: 12:53 rn 07/10 12:39 Order name: O2 Per Protocol; Complete Time: 12:53 rn 07/10 12:39 Order name: O2 Sat Monitoring; Complete Time: 12:53 rn EC:10 Rate is 68 beats/min. Rhythm is regular. QRS Weinert is Normal. RI interval is normal. QRS rn interval is normal. QT interval is normal. No Q waves. T waves are Normal. No ST changes noted. Clinical impression: NSR w/ Non-specific ST/T Changes. Interpreted by me. Reviewed by me. Administered Medications: 13:46 Drug: Rocephin (cefTRIAXone) 1 grams Route: IV; Rate: calculated rate; Site: left mb8 antecubital; 14:15 Follow up: IV Status: Completed infusion mb8 14:30 Drug: Nicoderm CQ Patch 21 mg/24 hr 1 patches Route: Transdermal; Site: affected area; mb8 Disposition Summary: 07/10/22 14:27 Hospitalization Ordered Hospitalization Status: Inpatient Admission rn Provider: Satya Obando rn Location: Telemetry/MedSurg (observation) rn Condition: Stable rn Problem: new rn Symptoms: have improved rn Bed/Room Type: Standard rn Room Assignment: 209(07/10/22 15:36) dw Diagnosis - UTI/ Urinary tract infection, site not specified rn - Altered mental status, unspecified rn - Muscle weakness (generalized) rn Forms: - Medication Reconciliation Form rn - SBAR form rn Signatures: Dispatcher [employer] Laurie Gonzales RN RN dw Enrique Dawson MD MD rn Garcia, Victoria RN RN vg1 Brady Morillo RN RN mb8 Corrections: (The following items were deleted from the chart) 15:36 14:27 rn dw
[2022-07-10] MEDS ORDERED: NICOTINE 21 MG/PAT TD ONE (14:53)
[2022-07-10 15:16] LABS: SARS-CoV-2 Antigen Rapid Res Negative (Negative)
[2022-07-10] MEDS: NA CHLORIDE 0.9% 1,000 ML IV SCH (16:51)
[2022-07-10 17:12] VITALS: BMI 25.2
[2022-07-10] MEDS: CEFTRIAXONE 1,000 MG in NA CHLORIDE 0.9% 50 ML IVPB SCH (20:40)
[2022-07-10 22:09] VITALS: O2SAT 97
[2022-07-10 23:32] LABS: Specific Gravity 1.013 (1.005-1.030); Urine Bacteria >50 /HPF (<20); Urine Bilirubin NEGATIVE (Negative); Urine Blood Negative (Negative); Urine Clarity Turbid (Clear); Urine Color Yellow (Yellow); Urine Glucose NEGATIVE (Negative); Urine Protein TRACE (Negative); Urine Urobilinogen Normal (Normal)
[2022-07-11] MEDS: NA CHLORIDE 0.9% 1,000 ML IV SCH (05:32)
[2022-07-11 05:58] LABS: Hematocrit 39.8 % (36.0-45.0); Lymphocytes % 34.2 % (15.3-44.8); MCV 89.6 fL (80-100); MPV 7.8 fL (7.6-11.3); RBC Red Blood Cell Count 4.44 M/uL (3.86-4.86)
[2022-07-11 06:21] LABS: Bilirubin Total 0.3 mg/dL (0.2-1.0); Potassium 3.3 mmol/L (3.5-5.1)
[2022-07-11 06:38] LABS: Folic Acid, (Folate) 7.3 ng/mL (3.1-17.5); Magnesium 1.8 mg/dL (1.8-2.4); Thyroid Stimulating Hormone 2.88 uIU/mL (0.360-3.740)
[2022-07-11] MEDS: CEFTRIAXONE 1,000 MG in NA CHLORIDE 0.9% 50 ML IVPB SCH (08:39)
[2022-07-11 08:45] VITALS: BP 166/84; TEMP 97
--- NOTE | 2022-07-11 10:18 | P.HP ---
Certification for Inpatient Patient admitted to: Observation With expected LOS: <2 Midnights Patient will require the following post-hospital care: None Practitioner: I am a practitioner with admitting privileges, knowledge of patient current condition, hospital course, and medical plan of care. Services: Services provided to patient in accordance with Admission requirements found in Title 42 Section 412.3 of the Code of Federal Regulations Patient History Date of Service: 07/10/22 Reason for admission: Urinary tract infection/toxic encephalopathy/weakness and fall History of Present Illness: Patient is a 77-year-old female who states she woke up a couple of days prior and she was not feeling like herself. She was feeling lethargic and confused. She was weak and she had fallen as well. She lives with her daughter who brought her into the emergency room for further evaluation. The daughter mentioned she was also very lethargic. In the emergency room she was found to have a urinary tract infection. Other labs were unremarkable. Imaging studies did not reveal any other abnormalities. She also states she has been losing some weight. We will check her nutritional status and admit her to the hospital for observation. Allergies Penicillins Allergy (Verified 07/10/22 14:51) UNK Home Medications: Losartan/Hydrochlorothiazide [Losartan-Hctz 50-12.5 mg Tab] 1 each PO DAILY 07/10/22 Cefdinir [Cefdinir*] 300 mg PO BID #14 cap 07/11/22 Cyanocobalamin (Vitamin B-12) [Vitamin B12] 5,000 mcg SL DAILY #30 tab 07/11/22 Folic Acid 1 mg PO DAILY #30 tab 07/11/22 - Past Medical/Surgical History Has patient received pneumonia vaccine in the past: No Diabetic: No -: stroke 2003 -: HTN -: appendectomy -: cholecystectomy -: hysterectomy - Social History Smoking Status: Current every day smoker Alcohol use: No CD- Drugs: No Caffeine use: Yes Review of Systems 10-point ROS is otherwise unremarkable Physical Examination - Vital Signs Temperature: 97.0 F Blood Pressure: 166/84 Pulse: 69 Respirations: 16 Pulse Ox (%): 97 - Physical Exam General: Alert, In no apparent distress, Confused HEENT: Atraumatic, PERRLA, Mucous membr. moist/pink, EOMI, Sclerae nonicteric Neck: Supple, 2+ carotid pulse no bruit, No LAD, Without JVD or thyroid abnormality Respiratory: Clear to auscultation bilaterally, Normal air movement Cardiovascular: Regular rate/rhythm, Normal S1 S2, No murmurs Gastrointestinal: Normal bowel sounds, Soft and benign, Non-distended, No rebound, No guarding, Tenderness Musculoskeletal: No clubbing, No swelling, No tenderness Integumentary: No rashes Neurological: Normal gait, Normal speech, Normal strength at 5/5 x4 extr, Normal tone, Sensation intact, Cranial nerves 3-12 intact, Normal affect Lymphatics: No axilla or inguinal lymphadenopathy - Studies Laboratory Data (last 24 hrs) 07/10/22 12:26: PT 9.7, INR 0.88, APTT 29.6 07/10/22 12:26: WBC 6.70, Hgb 14.1, Hct 42.3, Plt Count 282 07/10/22 12:26: Sodium 136, Potassium 3.4 L, BUN 8, Creatinine 0.72, Glucose 118 H, Magnesium 2.2 Assessment & Plan - Problems (Diagnosis) (1) UTI (urinary tract infection) Current Visit: Yes Status: Acute (2) Toxic encephalopathy Current Visit: Yes Status: Acute (3) History of CVA (cerebrovascular accident) Current Visit: Yes Status: Acute (4) Generalized weakness Current Visit: Yes Status: Acute (5) Altered mental status Current Visit: Yes Status: Acute - Plan Plan: 1. Continue with IV antibiotics 2. IV fluids 3. Check nutritional status 4. Gentle hydration 5. Resume antiplatelet and statin therapy 6. GI and DVT prophylaxis - Advance Directives Does patient have a Living Will: No Does patient have a Durable POA for Healthcare: No - Code Status/Comfort Care Code Status Assessed: Yes Code Status: Full Code Critical Care: No Time Spent Managing PTS Care (In Minutes): 45
--- NOTE | 2022-07-11 10:19 | P.DS ---
Discharge Date: 07/11/22 Disposition: ROUTINE DISCHARGE Discharge Condition: GOOD Reason for Admission: Urinary tract infection/toxic encephalopathy/weakness and fall - Problems (1) UTI (urinary tract infection) Current Visit: Yes Status: Acute (2) Toxic encephalopathy Current Visit: Yes Status: Acute (3) History of CVA (cerebrovascular accident) Current Visit: Yes Status: Acute (4) Generalized weakness Current Visit: Yes Status: Acute (5) Altered mental status Current Visit: Yes Status: Acute Brief History of Present Illness: Patient is a 77-year-old female who states she woke up a couple of days prior and she was not feeling like herself. She was feeling lethargic and confused. She was weak and she had fallen as well. She lives with her daughter who brought her into the emergency room for further evaluation. The daughter mentioned she was also very lethargic. In the emergency room she was found to have a urinary tract infection. Other labs were unremarkable. Imaging studies did not reveal any other abnormalities. She also states she has been losing some weight. We will check her nutritional status and admit her to the hospital for observation. Hospital Course: Patient is clinically doing much better. She is ambulating with the nurses without difficulty. Her mentation is back to baseline. She states she is doing well and she is wanting to go home. Clinically she is stable. She apparently has her granddaughter's birthday that she wants to be available for her. At this time she is stable for discharge home. Vital Signs/Physical Exam: Temp Pulse Resp BP Pulse Ox 97.0 F 69 16 166/84 H 97 07/11/22 10:18 07/11/22 10:18 07/11/22 10:18 07/11/22 10:18 07/11/22 10:18 General: Alert, In no apparent distress, Oriented x3 Laboratory Data at Discharge: WBC 5.80 K/uL (4.3-10.9) 07/11/22 05: Hgb 13.5 g/dL (12.0-15.0) 07/11/22 05: Hct 39.8 % (36.0-45.0) 07/11/22 05:22 Plt Count 250 K/uL (152-406) 07/11/22 05: PT 9.7 SECONDS (9.5-12.5) 07/10/22 12:26 INR 0.88 07/10/22 12:26 APTT 29.6 SECONDS (24.3-36.9) 07/10/22 12:26 Sodium 138 mmol/L (136-145) 07/11/22 05:22 Potassium 3.3 mmol/L (3.5-5.1) L 07/11/22 05:22 BUN 8 mg/dL (7-18) 07/11/22 05:22 Creatinine 0.61 mg/dL (0.55-1.3) 07/11/22 05:22 Glucose 121 mg/dL (74-106) H 07/11/22 05:22 Magnesium 1.8 mg/dL (1.8-2.4) 07/11/22 05:22 Total Bilirubin 0.3 mg/dL (0.2-1.0) 07/11/22 05:22 AST 9 U/L (15-37) L 07/11/22 05:22 ALT 14 U/L (12-78) 07/11/22 05:22 Alkaline Phosphatase 66 U/L (45-117) 07/11/22 05:22 Home Medications: Losartan/Hydrochlorothiazide [Losartan-Hctz 50-12.5 mg Tab] 1 each PO DAILY 07/10/22 Cefdinir [Cefdinir*] 300 mg PO BID #14 cap 07/11/22 Cyanocobalamin (Vitamin B-12) [Vitamin B12] 5,000 mcg SL DAILY #30 tab 07/11/22 Folic Acid 1 mg PO DAILY #30 tab 07/11/22 New Medications: Cefdinir [Cefdinir*] 300 mg PO BID #14 cap Folic Acid 1 mg PO DAILY #30 tab Cyanocobalamin (Vitamin B-12) [Vitamin B12] 5,000 mcg SL DAILY #30 tab Physician Discharge Instructions: -DC IV and DC home -Follow-up with PCP in 1 to 2 weeks -Follow-up with Cardiology in 1 to 2 weeks -Please call Dr. Obando at [phone] if any questions regarding hospital stay -Please call nursing station at [phone] if any nursing or medication questions -Return to the emergency room if symptoms worsen Diet: Regular Activity: Fall precautions Followup: Linda Piper, DO [Primary Care Provider] - Time spent managing pt's care (in minutes): 35
--- NOTE | 2022-07-11 12:36 | EKG ---
Test Date: 2022-07-10 Test Time: 13:31:53 Engraving Patternmaker: MEASUREMENT RESULTS: Intervals: Rate: 68 MO: 202 QRSD: 92 QT: 436 QTc: 463 [place]: P: 70 MO: 202 QRS: 89 T: 105 INTERPRETIVE STATEMENTS: Normal sinus rhythm Incomplete right bundle branch block Possible Inferior infarct, age undetermined Abnormal ECG No previous ECG available for comparison Electronically Signed On 07-11-22 12:35:44 CDT by Bautista Cai
== END 2022-07-11 12:49 | disposition home or self-care (01) ==
LOC: ER 11:50 → INTOOBSV 14:30 → ERHOLD 14:30 → 2ND 16:21
PROVIDERS: ADMIT Hospitalist; ATTEND Hospitalist
DX: N39.0 Urinary tract infection, site not specified (principal); G92.9 Unspecified toxic encephalopathy; Z86.73 Personal history of transient ischemic attack (TIA), and cerebral infarction without residual deficits; R53.1 Weakness; R41.82 Altered mental status, unspecified; Z20.822 Contact with and (suspected) exposure to COVID-19
CPT/HCPCS: 96365; 93005; 87040 ×2; 87088; 85025 ×2; 81001; 87086; 80048; 36415; 83735 ×2; 85610; 85730; 84443; 87077; 87186; 81003; 84484; 84439; 82746; 82607; 83540; 80053; 82533; 84145; 83880; 70450; 99285; 87811; J7030 ×2; G0378 ×3

== ENCOUNTER 2023-05-09 20:13 | Inpatient (IN) | payer OTHER ==
--- OUTSIDE RECORDS SUMMARY | 2023-05-09 21:02 | XMS REPORT | Continuity of Care Document ---
:1945 Author Organization [facility] [place] [facility] t Address [address] [facility] [address] [place] [address] Care Team Providers Name Role Phone Susan Strauss MD Attending Clinician [phone] Payers Payer Name Policy Type Policy Number Effective Date Expiration Date S ource Problems Condition Condition Condition Status Onset Resolution Last Treating Co mments Source Name Details Category Date Date Treatment Clinician Date No known No known Disease Unive rs active active ity of problems problems [facility] Allergies, Adverse Reactions, Alerts Allergy Allergy Status Severity Reaction(s) Onset Inactive Treating Comm ents Source Name Type Date Date Clinician Aspirin Propensi Active Unknown - 2005-0 Univ ers ty to See comments 1-04 ity of adverse 00:00: [place] reaction 00 [facility] Penicill Propensi Active Unknown - 2005-0 Uni vers ins ty to See comments 1-04 ity of adverse 00:00: [place] reaction 00 [facility] Social History Social Habit Start Date Stop Date Quantity Comments Source Sex Assigned At [facility]it [facility] of [facility] Tobacco use and 2019-07-19 2019-07-19 Never used Universit y of exposure 00:00:00 00:00:00 [facility] Cigarettes smoked 2019-07-19 2019-07-19 Univers ity of current (pack per 00:00:00 00:00:00 [facility] ) - Reported Branch Cigarette 2019-07-19 2019-07-19 University of pack-years 00:00:00 00:00:00 [facility] Alcohol intake 2019-07-19 2019-07-19 Ex-drinker [facility] 00:00:00 00:00:00 (finding) [facility] Tobacco Comment 2019-07-06 2019-07-06 1 pack a day Univers ity of 00:00:00 00:00:00 [facility] Smoking Status Start Date Stop Date Source Current every day smoker 2019-07-19 00:00:00 Uni versity of [facility] Medications Ordered Filled Start Stop Current Ordering Indication Dosage Frequency Signature Comments Components Source Medication Medication Date Date Medication? Clinician (SIG) Name Name lisinopril 2019-0 Yes [id number] 20mg Take 1 U nivers 20 mg 2-27 tablet by ity of tablet 00:00: mouth [place] 00 daily. Medical Branch tiotropium 0 Yes [id number] 18ug Inhale 1 Univers (SPIRIVA 2-27 capsule ity of WITH 00:00: daily. [place] HANDIHALER) 00 Medical 18 mcg Branch inhalation lisinopril 0 Yes [id number] 20mg Take 1 U nivers 20 mg 2-27 tablet by ity of tablet 00:00: mouth [place] 00 daily. Medical Branch tiotropium 0 Yes [id number] 18ug Inhale 1 Univers (SPIRIVA 2-27 capsule ity of WITH 00:00: daily. [place] HANDIHALER) 00 Medical 18 mcg Branch inhalation lisinopril 0 Yes [id number] 20mg Take 1 U nivers 20 mg 2-27 tablet by ity of tablet 00:00: mouth [place] 00 daily. Medical Branch tiotropium 0 Yes [id number] 18ug Inhale 1 Univers (SPIRIVA 2-27 capsule ity of WITH 00:00: daily. [place] HANDIHALER) 00 Medical 18 mcg Branch inhalation [...] or Shortness of Breath. tiotropium 2018-09 Yes [id number] 1{puff} Inhale 1 Univers bromide 1-13 Puff ity of (SPIRIVA 00:00: daily. [place] RESPIMAT) 00 Medical 2.5 Branch mcg/actuati on Mist lisinopril 2018-09 Yes [id number] 20mg Take 1 U nivers 20 mg 1-13 tablet by ity of tablet 00:00: mouth [place] 00 daily. Medical Branch tiotropium 2018-09 2020- No [id number] 1{puff} Inhale 1 Univers bromide 1-13 02-27 Puff ity of (SPIRIVA 00:00: 00:00 daily. [place] RESPIMAT) 00 :00 Medical 2.5 Branch mcg/actuati on Mist lisinopril 2018-09 2020- No [id number] 20mg Take 1 Univers 20 mg 1-13 02-27 tablet by ity of tablet 00:00: 00:00 mouth [place] 00 :00 daily. Medical Branch docusate 2018-09 Yes [id number] 100mg Take 1 Un zoltan 100 mg 0-31 capsule by ity of capsule 00:00: mouth [place] 00 daily. Medical Branch docusate 2018-09 Yes [id number] 100mg Take 1 Un zoltan 100 mg 0-31 capsule by ity of capsule 00:00: mouth [place] 00 daily. Medical Branch docusate 2018-09 Yes [id number] 100mg Take 1 Un zoltan 100 mg 0-31 capsule by ity of capsule 00:00: mouth [place] 00 daily. Medical Branch docusate 2018-09 Yes [id number] 100mg Take 1 Un zoltan 100 mg 0-31 capsule by ity of capsule 00:00: mouth [place] 00 daily. Medical Branch Procedures This patient has no known procedures. Encounters Start End Encounter Admission Attending Care Care Encounter Source Date/Time Date/Time Type Type Clinicians Facility Department ID 2020-09-24 2020-09-24 Refill Mcgregor Yvan 1.2.840.114 [id number] 00:00:00 00:00:00 , Susan Pediatric 350.1.13.10 M s and 4.2.7.2.686 Adult [id number] [address] 2020-09-24 2020-09-24 Refill Rica Yvan [id number] [facility] 00:00:00 00:00:00 , Susan Pediatric 350.1.13.10 [place] [id number] [address] 2020-09-18 2020-09-18 Refill Mcgregor Yvan 1.2.840.114 [id number] 00:00:00 00:00:00 , Susan Pediatric 350.1.13.10 M s and 4.2.7.2.686 Adult [id number] [address] 2020-09-18 2020-09-18 Refill Rica Yvan 1.2.840.114 [id number] Univers 00:00:00 00:00:00 , Susan Pediatric 350.1.13.10 [place]y [place] [id number] [address] 2019-11-01 2019-11-01 Refill Rica Yvan 1.2.840.114 [id number] 00:00:00 00:00:00 , Susan Pediatric 350.1.13.10 M s and 4.2.7.2.686 Adult [id number] [address] 2019-11-01 2019-11-01 Refill Mcgregor Yvan 1.2.840.114 [id number] Univers 00:00:00 00:00:00 , Susan Pediatric 350.1.13.10 [place]y [place] [id number] [address] 2019-10-24 2019-10-24 Refill Rica Santoro 1.2.840.114 [id number] [facility] 00:00:00 00:00:00 , Susan Pediatric 350.1.13.10 [place]y [place] [id number] [address] 2019-10-24 2019-10-24 Refill Rica Santoro 1.2.840.114 [id number] 00:00:00 00:00:00 , Susan Pediatric 350.1.13.10 M s and 4.2.7.2.686 Adult [id number] Primary [address] [place] [address] Clinic Results This patient has no known results.
--- NOTE | 2023-05-09 21:30 | RAD REPORT ---
EXAM DESCRIPTION: RAD - Chest Single View - 05/09/2023 9:12 pm CLINICAL HISTORY: CHEST PAIN COMPARISON: Chest Single View dated 09/24/2020 FINDINGS: Lines: None. Lungs: No evidence of edema or pneumonia. Pleural: No significant pleural effusions or pneumothorax. Cardiac: The heart size is within normal limits. Mediastinum: Within normal limits. Bones: No acute fractures. Other: None IMPRESSION: No acute cardiopulmonary disease.
[2023-05-09] MEDS ORDERED: NA CHLORIDE 0.9% 500 ML ONE (21:43)
[2023-05-09] MEDS ORDERED: NA CHLORIDE 0.9% 1,000 ML ONE (21:43)
[2023-05-09] MEDS ORDERED: ASPIRIN 81 MG CHEWABLE TABLET ONE (21:43)
[2023-05-09 22:32] LABS: Absolute Lymphocytes (CBC) 2.5 K/uL (0.7-4.9); Hematocrit 38.7 % (36.0-45.0); Lymphocytes % 32.3 % (15.3-44.8); MCV 89.6 fL (80-100); MPV 8.1 fL (7.6-11.3); Platelets 307 thou/uL (152-406); RBC Red Blood Cell Count 4.32 M/uL (3.86-4.86)
[2023-05-09 22:37] LABS: Protime INR 0.91
[2023-05-09 22:45] LABS: SARS-CoV-2 Antigen Rapid Res Negative (Negative)
[2023-05-09 22:46] LABS: Albumin 3.5 g/dL (3.4-5.0); Bilirubin Direct 0.1 mg/dL (0-0.2); Bilirubin Indirect, Calculated 0.2 mg/dL (0.2-0.8); Bilirubin Total 0.3 mg/dL (0.2-1.0); Potassium 3.1 mEq/L (3.5-5.1); Troponin High Sensitivity 43.1 pg/mL (<58.9)
[2023-05-09 23:04] LABS: Specific Gravity 1.021 (1.005-1.030); Urine Bacteria >50 /HPF (<20); Urine Bilirubin NEGATIVE (Negative); Urine Blood Trace (Negative); Urine Clarity Extremely Turbid (Clear); Urine Color Yellow (Yellow); Urine Glucose NEGATIVE (Negative); Urine Mucus 2+ /HPF (None Seen); Urine Protein TRACE (Negative); Urine RBC <5 /HPF (None Seen); Urine Urobilinogen Normal (Normal)
--- NOTE | 2023-05-09 23:08 | EDPHYS ---
Physician Documentation [facility] Name: Yany Steinberg Age: 78 yrs Sex: Female : 1945 Arrival Date: 05/09/2023 Time: 20:13 Bed 3 Private MD: Manfred Marx ED Physician Roosevelt Eagle HPI: 05/09 22:59 This 78 yrs old Female presents to ER via Wheelchair with complaints of Chest josemanuel Pain, Breathing Difficulty. 22:59 The patient or guardian reports chest pain that is located primarily in the substernal josemanuel area. Onset: just prior to arrival. The pain does not radiate. Associated signs and symptoms: Pertinent positives: shortness of breath. The chest pain is described as aching, a pressure. Duration: The patient or guardian reports a single episode, that is now resolved. Modifying factors: The symptoms are alleviated by nothing. Severity of pain: At its worst the pain was moderate in the emergency department the pain has resolved and did so just prior to arrival. The patient has not experienced similar symptoms in the past. Historical: - Allergies: 20:47 PENICILLINS; vc1 - PMHx: 20:47 CVA; Hypertension; vc1 - PSHx: 20:47 Total abdominal hysterectomy; vc1 - Social history:: Smoking status: Patient reports the use of cigarette tobacco products, smokes one-half pack cigarettes per day. - Family history:: not pertinent. ROS: 22:59 Constitutional: Negative for fever, chills, and weight loss, Eyes: Negative for injury, josemanuel pain, redness, and discharge, ENT: Negative for injury, pain, and discharge, Neck: Negative for injury, pain, and swelling, Abdomen/GI: Negative for abdominal pain, nausea, vomiting, diarrhea, and constipation, Back: Negative for injury and pain, : Negative for injury, bleeding, discharge, and swelling, MS/Extremity: Negative for injury and deformity, Skin: Negative for injury, rash, and discoloration, Neuro: Negative for headache, weakness, numbness, tingling, and seizure, Psych: Negative for depression, anxiety, suicide ideation, homicidal ideation, and hallucinations, Allergy/Immunology: Negative for hives, rash, and allergies, Endocrine: Negative for neck swelling, polydipsia, polyuria, polyphagia, and marked weight changes, Hematologic/Lymphatic: Negative for swollen nodes, abnormal bleeding, and unusual bruising. 22:59 Cardiovascular: Positive for chest pain, of the chest. 22:59 Respiratory: Positive for shortness of breath. Exam: 22:59 Constitutional: This is a well developed, well nourished patient who is awake, alert, josemanuel and in no acute distress. Head/Face: Normocephalic, atraumatic. Eyes: Pupils equal round and reactive to light, extra-ocular motions intact. Lids and lashes normal. Conjunctiva and sclera are non-icteric and not injected. Cornea within normal limits. Periorbital areas with no swelling, redness, or edema. ENT: Nares patent. No nasal discharge, no septal abnormalities noted. Tympanic membranes are normal and external auditory canals are clear. Oropharynx with no redness, swelling, or masses, exudates, or evidence of obstruction, uvula midline. Mucous membranes moist. Neck: Trachea midline, no thyromegaly or masses palpated, and no cervical lymphadenopathy. Supple, full range of motion without nuchal rigidity, or vertebral point tenderness. No Meningismus. Chest/axilla: Normal chest wall appearance and motion. Nontender with no deformity. No lesions are appreciated. Cardiovascular: Regular rate and rhythm with a normal S1 and S2. No gallops, murmurs, or rubs. Normal PMI, no JVD. No pulse deficits. Respiratory: Lungs have equal breath sounds bilaterally, clear to auscultation and percussion. No rales, rhonchi or wheezes noted. No increased work of breathing, no retractions or nasal flaring. Abdomen/GI: Soft, non-tender, with normal bowel sounds. No distension or tympany. No guarding or rebound. No evidence of tenderness throughout. Back: No spinal tenderness. No costovertebral tenderness. Full range of motion. Female : Normal external genitalia. Skin: Warm, dry with normal turgor. Normal color with no rashes, no lesions, and no evidence of cellulitis. MS/ Extremity: Pulses equal, no cyanosis. Neurovascular intact. Full, normal range of motion. Neuro: Awake and alert, GCS 15, oriented to person, place, time, and situation. Cranial nerves II-XII grossly intact. Motor strength 5/5 in all extremities. Sensory grossly intact. Cerebellar exam normal. Normal gait. Psych: Awake, alert, with orientation to person, place and time. Behavior, mood, and affect are within normal limits. 22:59 ECG was reviewed by the Attending Physician. Vital Signs: 20:46 BP 145 / 80; Pulse 66; Resp 22; Temp 97.7; Pulse Ox 93% ; Weight 68.04 kg; Height 5 ft. vc1 7 in. ; Pain 8/10; 22:00 BP 179 / 78; Pulse 82; Resp 16; Pulse Ox 100% ; Pain 0/10; pf1 23:00 BP 171 / 80; Pulse 72; Resp 16; Pulse Ox 100% ; Pain 0/10; pf1 05/10 00:26 BP 169 / 83; Pulse 74; Resp 18; Pulse Ox 100% on R/A; Pain 0/10; ha1 05/09 20:46 Body Mass Index 23.49 (68.04 kg, 170.18 cm) vc1 05/09 20:46 Pain Scale: Adult vc1 22:00 Pain Scale: Adult pf1 23:00 Pain Scale: Adult pf1 05/10 00:26 Pain Scale: Adult ha1 MDM: 05/09 20:30 Patient medically screened. josemanuel 23:03 Differential diagnosis: abnormal EKG, acute myocardial infarction, acute pericarditis, josemanuel anxiety, chest wall pain, Cholelithiasis costochondritis, gastroesophageal reflux disease (GERD), hiatal hernia, pancreatitis, peptic ulcer disease, pericarditis, pneumonia, pneumothorax, pulmonary embolus, stable angina, thoracic aortic disection, unstable angina. HEART Score: History: Moderately Suspicious (1), ECG: Non specific repolarization disturbance / LBTB / PM (1), Age: > or = 65 years (2), Risk Factors: > or = 3 Risk factors for atherosclerotic disease (2), [Hypertension] [Active Smoker] [+ Family HX] Troponin: < or = 1 x Normal Limit (0). The patient was given aspirin in the Emergency Department. NO Risk Score: 1 - patient's age is greater or equal to 65 years, 1 - Three or more CAD risk factors, 1- Known CAD, TOTAL SCORE = 3. Data reviewed: vital signs, nurses notes, lab test result(s), EKG, radiologic studies, plain films. Consideration of Admission/Observation Patient was admitted/placed on observation. Escalation of care including admission/observation considered. I considered the following discharge prescriptions or medication management in the emergency department Medications were administered in the Emergency Department. See MAR. Independent interpretation of the following test(s) in the Emergency Department EKG: See my EKG interpretation above. Test considered but Not performed: Ultrasound no 2 d echo. Care significantly affected by the following chronic conditions: Hypertension, Chronic Obstructive Pulmonary Disease. Counseling: I had a detailed discussion with the patient and/or guardian regarding the historical points, exam findings, and any diagnostic results supporting the discharge/admit diagnosis, lab results, radiology results, the need for further work-up and treatment in the hospital. 05/09 20:29 Order name: Basic Metabolic Panel; Complete Time: 22:57 [facility] 05/09 20:29 Order name: CBC with Diff; Complete Time: 22:57 [facility] 05/09 20:29 Order name: LFT's; Complete Time: 22:57 [facility] 05/09 20:29 Order name: Magnesium; Complete Time: 22:57 [facility] 05/09 20:29 Order name: NT PRO-BNP; Complete Time: 22:57 [facility] 05/09 20:29 Order name: PT-INR [facility] 05/09 20:29 Order name: Troponin HS; Complete Time: 22:57 [facility] 05/09 20:29 Order name: Lipase; Complete Time: 22:57 [facility] 05/09 20:29 Order name: Urinalysis w/ reflexes; Complete Time: 23:08 [facility] 05/09 20:29 Order name: SARS RAPID; Complete Time: 22:57 [facility] 05/09 20:29 Order name: Flu; Complete Time: 22:57 [facility] 05/09 23:08 Order name: Urine Culture [facility] 05/09 23:31 Order name: D-Dimer [facility] 05/09 20:29 Order name: XRAY Chest (1 view); Complete Time: 21:50 [facility] 05/09 20:29 Order name: EKG; Complete Time: 20:30 [facility] 05/09 20:29 Order name: Cardiac monitoring; Complete Time: 22:20 [facility] 05/09 20:29 Order name: EKG - Nurse/Tech; Complete Time: 22:20 [facility] 05/09 20:29 Order name: IV Saline Lock; Complete Time: 22:20 [facility] 05/09 20:29 Order name: Labs collected and sent; Complete Time: 22:20 [facility] 05/09 20:29 Order name: O2 Per Protocol; Complete Time: 23:59 [facility] 05/09 20:29 Order name: O2 Sat Monitoring; Complete Time: 23:59 josemanuel EC:59 Rate is 66 beats/min. Rhythm is regular. QRS [place] is Normal. ME interval is normal. QRS josemanuel interval is normal. QT interval is normal. No Q waves. T waves are Normal. ST Segment is depressed in leads II, III, aVF. Clinical impression: NSR w/ Non-specific ST/T Changes. Interpreted by me. Reviewed by me. Administered Medications: 21:30 Drug: Aspirin PO Chewable Tablet 162 mg Route: PO; pf1 22:30 Follow up: Response: No adverse reaction; Marked relief of symptoms; Pain is decreased pf1 22:20 Drug: NS 0.9% IV 1000 ml Route: IV; Rate: 125 ml/hr; Site: left antecubital; ha1 05/10 00:50 Follow up: Response: No adverse reaction; Marked relief of symptoms; IV Status: pf1 Infusion continued upon admission 05/09 22:44 Drug: NS 0.9% IV 500 ml Route: IV; Rate: bolus; Site: left antecubital; ha1 23:30 Follow up: Response: No adverse reaction; Marked relief of symptoms; IV Status: pf1 Completed infusion; IV Intake: 500ml 05/10 00:10 Drug: Potassium PO Effervescent Tablet 50 mEq Route: PO; ha1 00:50 Follow up: Response: No adverse reaction; Marked relief of symptoms pf1 00:10 Drug: Rocephin IV 1 grams Route: IV; Rate: per protocol; Site: left antecubital; ha1 00:50 Follow up: Response: No adverse reaction; Marked relief of symptoms; IV Status: pf1 Completed infusion 00:10 Drug: Metoprolol PO 25 mg Route: PO; ha1 00:50 Follow up: Response: No adverse reaction; Marked relief of symptoms; Blood pressure is pf1 lowered 00:10 Drug: Famotidine IVP 20 mg Route: IVP; Site: left antecubital; ha1 00:50 Follow up: Response: No adverse reaction pf1 00:15 Drug: Enoxaparin Sub-Q 60 mg Route: Sub-Q; Site: left upper arm; ha1 00:50 Follow up: Response: No adverse reaction pf1 Disposition Summary: 05/09/23 23:07 Hospitalization Ordered Hospitalization Status: Observation josemanuel Location: Telemetry/MedSurg (observation) josemanuel Condition: Fair josemanuel Problem: new josemaunel Symptoms: have improved josemanuel Bed/Room Type: Standard josemanuel Provider: Satya Obando(05/09/23 23:10) josemanuel Room Assignment: 401(05/09/23 23:41) Diagnosis - Tobacco abuse counseling josemanuel - Tobacco use josemanuel - Dyspnea josemanuel - Chest pain, unspecified josemanuel - Hypokalemia josemanuel - UTI/ Urinary tract infection, site not specified josemanuel Forms: - Medication Reconciliation Form josemanuel - SBAR form josemanuel - Leadership Thank You Letter josemanuel Signatures: Dispatcher [employer] EDMS Edwige Boogie RN RN kl Anderson, Corey, MD MD cha Attema, Lee, PARTS FACILITATOR-C PARTS FACILITATOR-Cla1 Ashly Aecves RN RN vc1 Cara Orourke RN RN ha1 Britni Toussaint RN RN pf1 Corrections: (The following items were deleted from the chart) 05/09 23:10 23:07 Faustino Dawson [facility] 23:31 23:20 D-DIMER+COAG.LAB.BRZ ordered. EDGA EDGA 23:41 23:07 josemanuel
--- NOTE | 2023-05-09 23:08 | ER ---
Nurse's Notes [facility] Name: Yany Steinberg Age: 78 yrs Sex: Female : 1945 Arrival Date: 05/09/2023 Time: 20:13 Bed 3 Private MD: Manfred Marx Diagnosis: Tobacco abuse counseling;Tobacco use;Dyspnea;Chest pain, unspecified;Hypokalemia;UTI/ Urinary tract infection, site not specified Presentation: 05/09 20:46 Chief complaint: Patient states: Chest pain and short of breath all day. Coronavirus vc1 screen: Client denies travel out of the [place] in the last 14 days. At this time, the client does not indicate any symptoms associated with coronavirus-19. Ebola Screen: Patient negative for fever greater than or equal to 101.5 degrees Fahrenheit, and additional compatible Ebola Virus Disease symptoms Patient denies exposure to infectious person. Patient denies travel to an Ebola-affected area in the 21 days before illness onset. No symptoms or risks identified at this time. Initial Sepsis Screen: Does the patient meet any 2 criteria? No. Patient's initial sepsis screen is negative. Does the patient have a suspected source of infection? No. Patient's initial sepsis screen is negative. Risk Assessment: Do you want to hurt yourself or someone else? Patient reports no desire to harm self or others. Onset of symptoms was May 09, 2023 at 08:00. 20:46 Method Of Arrival: Wheelchair vc1 20:46 Acuity: FRANCISCO 3 vc1 Historical: - Allergies: 20:47 PENICILLINS; vc1 - PMHx: 20:47 CVA; Hypertension; vc1 - PSHx: 20:47 Total abdominal hysterectomy; vc1 - Social history:: Smoking status: Patient reports the use of cigarette tobacco products, smokes one-half pack cigarettes per day. - Family history:: not pertinent. Screenin/04 00:30 [facility] ED Fall Risk Assessment (Adult) History of falling in the last 3 months, ha1 including since admission No falls in past 3 months (0 pts) Confusion or Disorientation No (0 pts) Intoxicated or Sedated No (0 pts) Impaired Gait Yes (1 pt) Mobility Assist Device Used Yes (1 pt) Altered Elimination No (0 pt) Score/Fall Risk Level 3 or more points = High Risk Oriented to surroundings, Maintained a safe environment, Educated pt \T\ family on fall prevention, incl call for assistance when getting out of bed, Hourly rounding (assess needs \T\ fall precautionary measures) done. Abuse screen: Denies threats or abuse. Denies injuries from another. Nutritional screening: No deficits noted. Tuberculosis screening: No symptoms or risk factors identified. Assessment: 05/09 20:50 General: Appears in no apparent distress. comfortable, well groomed, well developed, pf1 Behavior is calm, cooperative, quiet. 20:50 Pain: Complains of pain in chest. Neuro: No deficits noted. Level of Consciousness is pf1 awake, alert, obeys commands, Oriented to person, place, time, situation. Cardiovascular: Reports chest pain, shortness of breath. Respiratory: No deficits noted. Airway is patent Respiratory effort is even, unlabored, Respiratory pattern is regular, symmetrical. GI: No deficits noted. No signs and/or symptoms were reported involving the gastrointestinal system. : No deficits noted. No signs and/or symptoms were reported regarding the genitourinary system. 22:00 Reassessment: Patient appears in no apparent distress at this time. Patient and/or pf1 family updated on plan of care and expected duration. Pain level reassessed. Patient is alert, oriented x 3, equal unlabored respirations, skin warm/dry/pink. Patient states feeling better. Patient states symptoms have improved. 23:00 Reassessment: Patient appears in no apparent distress at this time. Patient and/or pf1 family updated on plan of care and expected duration. Pain level reassessed. Patient is alert, oriented x 3, equal unlabored respirations, skin warm/dry/pink. Patient states feeling better. Patient states symptoms have improved. 05/10 00:00 Reassessment: Patient appears in no apparent distress at this time. Patient and/or pf1 family updated on plan of care and expected duration. Pain level reassessed. Patient is alert, oriented x 3, equal unlabored respirations, skin warm/dry/pink. Patient states feeling better. Patient states symptoms have improved. Vital Signs: 05/09 20:46 BP 145 / 80; Pulse 66; Resp 22; Temp 97.7; Pulse Ox 93% ; Weight 68.04 kg; Height 5 ft. vc1 7 in. ; Pain 8/10; 22:00 BP 179 / 78; Pulse 82; Resp 16; Pulse Ox 100% ; Pain 0/10; pf1 23:00 BP 171 / 80; Pulse 72; Resp 16; Pulse Ox 100% ; Pain 0/10; pf1 05/10 00:26 BP 169 / 83; Pulse 74; Resp 18; Pulse Ox 100% on R/A; Pain 0/10; ha1 05/09 20:46 Body Mass Index 23.49 (68.04 kg, 170.18 cm) vc1 05/09 20:46 Pain Scale: Adult vc1 22:00 Pain Scale: Adult pf1 23:00 Pain Scale: Adult pf1 05/10 00:26 Pain Scale: Adult ha1 ED Course: 05/09 20:16 Patient arrived in ED. es 20:16 Manfred Marx MD is Private Physician. es 20:27 Roosevelt Eagle MD is Attending Physician. josemanuel 20:46 Patient has correct armband on for positive identification. Placed in gown. Bed in low ha1 position. Call light in reach. Side rails up X 1. 20:47 Triage completed. vc1 20:48 Arm band placed on right wrist. vc1 21:14 XRAY Chest (1 view) In Process Unspecified. EDMS 22:20 SARS RAPID Sent. cg3 22:20 Flu Sent. cg3 22:20 Urinalysis w/ reflexes Sent. cg3 22:20 Basic Metabolic Panel Sent. cg3 22:21 Troponin HS Sent. cg3 22:21 PT-INR Sent. cg3 22:21 NT PRO-BNP Sent. cg3 22:21 Magnesium Sent. cg3 22:21 LFT's Sent. cg3 22:21 CBC with Diff Sent. cg3 22:21 Lipase Sent. cg3 22:38 Flu Sent. cg3 22:39 Inserted saline lock: 20 gauge in left antecubital area, using aseptic technique. cg3 23:06 Enrique Dawson MD is Hospitalizing Provider. josemanuel 23:07 Faustino Dawson MD is Hospitalizing Provider. josemanuel 23:10 Satya Obando MD is Hospitalizing Provider. josemanuel 23:42 Urine Culture Sent. cg3 05/10 00:30 No provider procedures requiring assistance completed. Patient admitted, IV remains in ha1 place. 00:32 Provided Education on: need for admit . ha1 Administered Medications: 05/09 21:30 Drug: Aspirin PO Chewable Tablet 162 mg Route: PO; pf1 22:30 Follow up: Response: No adverse reaction; Marked relief of symptoms; Pain is decreased pf1 22:20 Drug: NS 0.9% IV 1000 ml Route: IV; Rate: 125 ml/hr; Site: left antecubital; ha1 05/10 00:50 Follow up: Response: No adverse reaction; Marked relief of symptoms; IV Status: pf1 Infusion continued upon admission 05/09 22:44 Drug: NS 0.9% IV 500 ml Route: IV; Rate: bolus; Site: left antecubital; ha1 23:30 Follow up: Response: No adverse reaction; Marked relief of symptoms; IV Status: pf1 Completed infusion; IV Intake: 500ml 05/10 00:10 Drug: Potassium PO Effervescent Tablet 50 mEq Route: PO; ha1 00:50 Follow up: Response: No adverse reaction; Marked relief of symptoms pf1 00:10 Drug: Rocephin IV 1 grams Route: IV; Rate: per protocol; Site: left antecubital; ha1 00:50 Follow up: Response: No adverse reaction; Marked relief of symptoms; IV Status: pf1 Completed infusion 00:10 Drug: Metoprolol PO 25 mg Route: PO; ha1 00:50 Follow up: Response: No adverse reaction; Marked relief of symptoms; Blood pressure is pf1 lowered 00:10 Drug: Famotidine IVP 20 mg Route: IVP; Site: left antecubital; ha1 00:50 Follow up: Response: No adverse reaction pf1 00:15 Drug: Enoxaparin Sub-Q 60 mg Route: Sub-Q; Site: left upper arm; ha1 00:50 Follow up: Response: No adverse reaction pf1 Medication: 00:31 VIS not applicable for this client. ha1 Intake: 05/09 23:30 IV: 500ml; Total: 500ml. pf1 Outcome: 23:07 Decision to Hospitalize by Provider. [facility] 05/10 00:31 Condition: stable ha1 Discharge instructions given to patient, family, Instructed on the need for admit. 00:49 Admitted to Med/surg accompanied by phyllis, via stretcher, room 401, with chart, Report ha1 called to ISAK Augustin 00:54 Patient left the ED. ha1 Signatures: Dispatcher [employer] Roosevelt Mayo MD MD cha Salyer, Edna es Calcote, Vanessa, RN RN 1 Cara Orourke RN RN ha1 Britni Toussaint RN RN 1 Timothy, Katie 3
--- NOTE | 2023-05-09 23:47 | P.HP ---
Certification for Inpatient Patient admitted to: Observation With expected LOS: <2 Midnights Patient will require the following post-hospital care: None Practitioner: I am a practitioner with admitting privileges, knowledge of patient current condition, hospital course, and medical plan of care. Services: Services provided to patient in accordance with Admission requirements found in Title 42 Section 412.3 of the Code of Federal Regulations Patient History Date of Service: 05/09/23 Reason for admission: Chest pain History of Present Illness: 78-year-old female with history of hypertension, previous CVA presents to the emergency department with chief complaint of chest pain, shortness of breath. She reports that her pain began after waking up this morning is described as dull nonradiating with associated shortness of breath. She was evaluated in the emergency department her labs are significant for initial high-sensitivity troponin of 43.1 BNP 519 potassium 3.1 D-dimer 659age-adjusted negative UA concerning for signs of urinary tract infection with leuk esterase, white blood cell, bacteria, nitrite positive. Chest x-ray was negative for acute findings, ED provider wishes to admit patient observation for ACS rule out. Allergies Penicillins Allergy (Verified 07/10/22 14:51) UNK Home Medications: Losartan/Hydrochlorothiazide [Losartan-Hctz 50-12.5 mg Tab] 1 each PO DAILY 07/10/22 Cefdinir [Cefdinir*] 300 mg PO BID #14 cap 07/11/22 Cyanocobalamin (Vitamin B-12) [Vitamin B12] 5,000 mcg SL DAILY #30 tab 07/11/22 Folic Acid 1 mg PO DAILY #30 tab 07/11/22 - Past Medical/Surgical History Diabetic: No -: stroke 2003 -: HTN -: appendectomy -: cholecystectomy -: hysterectomy Psychosocial/ Personal History: Lives at home with son, [id number]. - Family History Family History: Reviewed- Non-Contributory - Social History Smoking Status: Current every day smoker Smoking therapy provided: No (Declined) Alcohol use: No CD- Drugs: No Caffeine use: Yes Place of Residence: Home Review of Systems 10-point ROS is otherwise unremarkable Respiratory: Shortness of Breath Cardiovascular: Chest Pain Physical Examination - Physical Exam General: Alert, In no apparent distress, Oriented x3 HEENT: Atraumatic, PERRLA, Mucous membr. moist/pink, EOMI, Sclerae nonicteric Neck: Supple, 2+ carotid pulse no bruit, No LAD, Without JVD or thyroid abnormality Respiratory: Clear to auscultation bilaterally, Normal air movement Cardiovascular: Regular rate/rhythm, Normal S1 S2 Gastrointestinal: Normal bowel sounds, No tenderness Musculoskeletal: No tenderness Integumentary: No rashes Neurological: Normal gait, Normal speech, Normal strength at 5/5 x4 extr, Normal tone, Normal affect Lymphatics: No axilla or inguinal lymphadenopathy - Studies Laboratory Data (last 24 hrs) 05/09/23 05/09/23 05/09/23 21:53 21:53 21:53 WBC 7.70 Hgb 13.5 Hct 38.7 Plt Count 307 PT 10.0 INR 0.91 Sodium 138 Potassium 3.1 L BUN 20 H Creatinine 0.67 Glucose 105 Magnesium 2.0 Total Bilirubin 0.3 AST 8 L ALT 13 Alkaline Phosphatase 71 Lipase 36 Microbiology Data (last 24 hrs): 05/09/23 21:53 Nasopharnyx Influenza Type A Antigen Screen - Final 05/09/23 21:53 Nasopharnyx Influenza Type B Antigen Screen - Final Assessment and Plan - Plan Assessment: Chest pain rule ACS Hypertension History of [id number] Plan: Chest pain rule ACS Trend troponin, monitor on telemetry, cardiology consult. Given aspirin in ED, continue aspirin, statin. Received therapeutic Lovenox in ED. If troponin becomes elevated on next draw will initiate heparin. Pain-free this time. Hypertension Obtain and continue home medication. History of [id number] DVT PPX: Lovenox Code status: Full Discharge Plan: Home Plan to discharge in: 24 Hours - Advance Directives Does patient have a Living Will: No Does patient have a Durable POA for Healthcare: No - Code Status/Comfort Care Code Status Assessed: Yes (Full code) Critical Care: No Time Spent Managing Pts Care (In Minutes): 55
[2023-05-10] MEDS ORDERED: CEFTRIAXONE 1000 MG/VIAL ONE (00:14)
[2023-05-10] MEDS ORDERED: METOPROLOL TAR 25 MG TAB ONE (00:14)
[2023-05-10] MEDS ORDERED: FAMOTIDINE 20 MG/2 ML VIAL IV ONE (00:15)
[2023-05-10] MEDS ORDERED: POTASSIUM 25 MEQ EFFERV TAB ONE (00:15)
[2023-05-10] MEDS ORDERED: ENOXAPARIN 60 MG/0.6 ML SQ ONE (00:15)
[2023-05-10] MEDS ORDERED: MORPHINE 2 MG/ML SYR IV PRN (01:25)
[2023-05-10] MEDS ORDERED: ALBUTEROL 2.5 MG/3 ML NEB SOL NEB PRN ×2 (01:25→08:00)
[2023-05-10] MEDS ORDERED: ONDANSETRON 4 MG/2 ML VIAL IV PRN (01:25)
[2023-05-10 05:57] LABS: Hematocrit 34.6 % (36.0-45.0); Lymphocytes % 35.9 % (15.3-44.8); MCV 88.5 fL (80-100); MPV 8.1 fL (7.6-11.3); Platelets 279 thou/uL (152-406); RBC Red Blood Cell Count 3.91 M/uL (3.86-4.86)
[2023-05-10 06:15] LABS: Thyroid Stimulating Hormone 3.64 uIU/mL (0.358-3.740); Troponin High Sensitivity 37.5 pg/mL (<58.9)
[2023-05-10 06:38] VITALS: BMI 23.5
--- NOTE | 2023-05-10 06:51 | P.PN ---
Date of Service: 05/10/23 Subjective: Patient clinically doing well with no new complaints. Patient denies any chest pain at this time. Troponins are negative. Scheduled for echocardiogram in the morning along with CT PE protocol. Possible stress test in the morning as well. Physical Exam: Vitals: Reviewed Gen: Alert, Oriented, NAD CV: regular rate & rhythm, no edema Pulm: Respirations are clear bilaterally Abd: soft, nontender, nondistended MSK: no joint tenderness Integumentary: No rashes Neuro: normal speech, normal affect Problem List: Chest pain Bacteriuria Hypertension History of [id number] Plan: -High-sensitivity troponin -Cardiology consultation appreciated -Echocardiogram and possibly stress test per cardiology recommendation -CT PE protocol -Lipid profile reviewed -Tree Planter regarding modifying risk for cardiac disease -IV antibiotic therapy -Blood pressure control -Antiplatelet and statin therapy
[2023-05-10] MEDS: ENOXAPARIN 40 MG/0.4 ML SQ SCH (07:27)
[2023-05-10] MEDS: ASPIRIN EC 81 MG TAB PO SCH (07:27)
[2023-05-10 09:10] VITALS: O2SAT 96
[2023-05-10] MEDS ORDERED: POTASSIUM 25 MEQ EFFERV TAB PO ONE (14:39)
--- NOTE | 2023-05-10 16:25 | CON ---
Date of Consultation: 05/10/2023 Reason For Consultation: Chest pain. History Of Present Illness: A 78-year-old female with history of hypertension, who presented to the emergency room complaining of shortness of breath and chest pain. Pain is more of a tightness and tr oponin was borderline in the emergency room and NT-proBNP slightly elevated. She denies having any n ausea, vomiting, or any other complaints. Past Medical History: Hypertension and CVA. Medications: Refer to reconciliation sheet for detailed list. Allergies: PENICILLIN. Family History: No premature coronary artery disease or cancer. Social History: She is an active smoker. Does not drink or use any drugs. Review of Systems: All systems reviewed and they were negative except what mentioned in HPI. Physical Examination: Vital Signs: Reviewed. Head and Neck: Pupils are equal, reactive to light. Intact eye movements. No JVD. No cervical lym phadenopathy. Neck is supple. Thyroid is not enlarged. Lungs: Clear to auscultation bilaterally. No rhonchi, wheezing, or crackles. No accessory muscle u se. Heart: Decreased breathing sounds with scattered wheezing. No accessory muscle use or muscle retrac tion. Abdomen: Soft, nontender. Bowel sounds positive. No organomegaly. No masses or hernia. No rigidi ty or rebound. Extremities: No edema, clubbing, or cyanosis. Intact pulses. Skin: No rash. Neurologic: Alert, awake, oriented x3. No acute focal deficits appreciated. Investigations: Cardiac enzymes x3 are negative. BUN 15, creatinine 0.47, hemoglobin is 12.0. Assessment And Recommendations: 1.Chest pain, negative troponin, heavy smoker. Recommend exercise nuclear stress test tomorrow as w ell as an echo. 2.Elevated NT-proBNP. Obtain an echo to further evaluate the presence of congestive heart failure. 3.Dyslipidemia. Continue statin. 4.Chronic obstructive pulmonary disease exacerbation, on steroids and nebulizer treatment and antibi otics. 5.Smoker. She was counseled to quit. SR/MODL Voice ID: [id number] Report ID: [id number]
[2023-05-10] MEDS: METHYLPREDNISOLONE 40 MG INJ IV SCH (16:57)
[2023-05-10] MEDS: CEFTRIAXONE 1,000 MG in NA CHLORIDE 0.9% 50 ML IVPB SCH (20:08)
[2023-05-10] MEDS: ATORVASTATIN 40 MG TAB PO SCH (20:09)
[2023-05-11] MEDS: METHYLPREDNISOLONE 40 MG INJ IV SCH ×3 (03:38→18:10)
[2023-05-11 06:19] LABS: Absolute Lymphocytes (CBC) 1.7 K/uL (0.7-4.9); Hematocrit 34.9 % (36.0-45.0); MCV 88.9 fL (80-100); MPV 8.1 fL (7.6-11.3); Platelets 268 thou/uL (152-406); RBC Red Blood Cell Count 3.92 M/uL (3.86-4.86)
[2023-05-11 06:32] LABS: Potassium 3.9 mEq/L (3.5-5.1)
--- NOTE | 2023-05-11 07:51 | P.PN ---
Date of Service: 05/11/23 Subjective: Patient has done well during her hospital stay. Patient denies any chest pain for the last 2 days. She was having a headache this morning. She drinks a lot of caffeine throughout the day and she has not had any since she has been in the hospital. We will go ahead and give her some medication for her headache and resume her diet as they are not able to do her stress test today. Will discuss with cardiology whether we can do this as an outpatient. If we can do this as an outpatient that she should be able to go home today with further outpatient follow-up. Troponin EKG been negative. No chest pain for 2 days. Physical Exam: Vitals: Reviewed Gen: Alert, Oriented, NAD CV: regular rate & rhythm, no edema Pulm: Respirations are clear bilaterally Abd: soft, nontender, nondistended MSK: no joint tenderness Integumentary: No rashes Neuro: normal speech, normal affect Problem List: Chest pain Bacteriuria Hypertension History of [id number] Plan: -High-sensitivity troponin -Cardiology consultation appreciated -Echocardiogram; outpatient stress test if cardiology is agreeable -CT PE protocol pending; will wait for the results. If this looks good and the echocardiogram is unremarkable then hopefully we can get her home. -Lipid profile reviewed -Slip Cover Sewer regarding modifying risk for cardiac disease -IV antibiotic therapy -Blood pressure control -Antiplatelet and statin therapy
--- NOTE | 2023-05-11 07:52 | RAD REPORT ---
EXAM DESCRIPTION: CT - Chest For Pe Angio - 05/11/2023 7:33 am CLINICAL HISTORY: Chest pain. Chest pain r/o ACS/PE; dyspnea COMPARISON: No comparisons TECHNIQUE: CT angiogram of the pulmonary arteries was performed with MIP. All CT scans are performed using dose optimization technique as appropriate and may include automated exposure control or mA/KV adjustment according to patient size. FINDINGS: No evidence of pulmonary thromboembolism. No acute aortic finding demonstrated. The lungs are mildly emphysematous but clear. No significant pericardial or pleural fluid. No concerning bony finding. IMPRESSION: No evidence of pulmonary thromboembolism. Mild COPD.
[2023-05-11] MEDS ORDERED: ACETAMIN/CAFFEINE/BUTALB TAB PO ONE (08:00)
[2023-05-11] MEDS ORDERED: REGADENOSON 0.4 MG/5 ML SYR IV ONE (08:00)
[2023-05-11] MEDS: ASPIRIN EC 81 MG TAB PO SCH (09:07)
[2023-05-11] MEDS: ENOXAPARIN 40 MG/0.4 ML SQ SCH (09:07)
--- NOTE | 2023-05-11 16:51 | EKG ---
Test Date: 2023-05-09 Test Time: 20:43:44 Gasket Former: BENITO MEASUREMENT RESULTS: Intervals: Rate: 66 MS: 186 QRSD: 92 QT: 422 QTc: 442 [place]: P: 72 MS: 186 QRS: 94 T: 106 INTERPRETIVE STATEMENTS: Normal sinus rhythm Rightward axis Incomplete right bundle branch block Cannot rule out Inferior infarct, age undetermined Abnormal ECG Compared to ECG 07/10/2022 13:31:53 Right-axis deviation now present Myocardial infarct finding still present Electronically Signed On 05-11-23 16:45:18 CDT by Federico Tapia
--- NOTE | 2023-05-11 18:39 | PN ---
Date of Progress Note: 05/11/2023 Subjective: Seen by bedside. She gives no further chest pain while resting, and no nausea, vomiting , or diarrhea. All other systems were reviewed, they were negative. Objective: Vital Signs: Reviewed. Head and Neck: Pupils are equal, reactive to light. Intact eye movements. No JVD. No cervical lym phadenopathy. Neck is supple. Thyroid is not enlarged. Lungs: Clear to auscultation bilaterally. No rhonchi, wheezing, or crackles. No accessory muscle u se. Heart: Regular rate and rhythm. No extra sounds. Abdomen: Soft, nontender. Bowel sounds positive. No organomegaly. No masses or hernia. No rigidi ty or rebound. Extremities: No edema, clubbing, or cyanosis. Intact pulses. Skin: No rash. No nodule. Neurologic: Alert, awake, oriented x3. No acute focal deficits appreciated. Lymph Nodes: No cervical or axillary lymphadenopathy. Investigations: BUN 15, creatinine 0.50, and hemoglobin is 12. Assessment And Recommendations: 1.Chest pain with smoking and exertional typical pain. Await on the stress test, was not done today . Plan for it in the morning. 2.Chronic obstructive pulmonary disease, it is mild. She was counseled to quit smoking. 3.Hypertension. Add amlodipine 5 mg daily. 4.Dyslipidemia. Continue statin, Lipitor 40 mg q.h.s. SR/MODL Voice ID: [id number] Report ID: [id number]
[2023-05-11] MEDS: CEFTRIAXONE 1,000 MG in NA CHLORIDE 0.9% 50 ML IVPB SCH (20:03)
[2023-05-11] MEDS: ATORVASTATIN 40 MG TAB PO SCH (20:03)
[2023-05-11] MEDS: HYDRALAZINE HCL 20 MG/ML VIAL IV PRN (20:48)
[2023-05-12] MEDS: METHYLPREDNISOLONE 40 MG INJ IV SCH ×2 (00:56→09:28)
[2023-05-12] MEDS: HYDRALAZINE HCL 20 MG/ML VIAL IV PRN (00:56)
[2023-05-12 06:36] LABS: Absolute Lymphocytes (CBC) 1.3 K/uL (0.7-4.9); Hematocrit 34.4 % (36.0-45.0); MPV 8.3 fL (7.6-11.3); Platelets 276 thou/uL (152-406); RBC Red Blood Cell Count 3.86 M/uL (3.86-4.86)
[2023-05-12 06:40] LABS: Potassium 3.8 mEq/L (3.5-5.1)
--- NOTE | 2023-05-12 07:18 | ECHO ---
HEIGHT: 5 ft 7 in WEIGHT: 150 lb 0 oz DATE OF STUDY: 05/11/[address]: Jayden Cheatham NP 2-DIMENSIONAL: YES M.MODE: YES DOPPLER: YES COLOR FLOW: YES TDS: PORTABLE: YES DEFINITY: BUBBLE STUDY: DIAGNOSIS: CHEST PAIN CARDIAC HISTORY: CATHERIZATION: NO SURGERY: NO PROSTHETIC VALVE: NO PACEMAKER: NO MEASUREMENTS (cm) DIASTOLIC (NORMALS) SYSTOLIC (NORMALS) IVSd 1.1 (0.6-1.2) LA Diam 2.7 (1.9-4.0) LVEF 68% LVIDd 3.3 (3.5-5.7) LVIDs 2.1 (2.0-3.5) %FS 37% LVPWd 1.1 (0.6-1.2) Ao Diam 2.2 (2.0-3.7) 2 DIMENSIONAL ASSESSMENT: RIGHT ATRIUM: NORMAL LEFT ATRIUM: NORMAL RIGHT VENTRICLE: NORMAL LEFT VENTRICLE: NORMAL TRICUSPID VALVE: MILD TRICUSPID REGURGITATION MITRAL VALVE: MILD MITRAL REGURGITATION PULMONIC VALVE: NORMAL AORTIC VALVE: NORMAL PERICARDIAL EFFUSION: NONE AORTIC ROOT: NORMAL LEFT VENTRICULAR WALL MOTION: NORMAL DOPPLER/COLOR FLOW: SEE BELOW COMMENTS: 1. NORMAL LEFT VENTRICULAR EJECTION FRACTION 60-65% 2. NORMAL WALL MOTION 3. MILD MITRAL REGURGITATION 4. MILD TRICUSPID REGURGITATION 5. GRADE I DIASTOLIC DYSFUNCTION TECHNOLOGIST: JACOB ABDUL
[2023-05-12] MEDS: ASPIRIN EC 81 MG TAB PO SCH (07:33)
[2023-05-12] MEDS: ENOXAPARIN 40 MG/0.4 ML SQ SCH (09:28)
--- NOTE | 2023-05-12 09:36 | RAD REPORT ---
EXAM DESCRIPTION: NM - Rest Stress Cardiac Imaging - 05/12/2023 9:14 am CLINICAL HISTORY: Chest pain. COMPARISON: None. TECHNIQUE: The patient was administered 10.5 mCi of Tc 99m Sestamibi prior to resting SPECT imaging of the heart. The patient was then administered 32.1 mCi of Tc 99m Sestamibi following exercise or ph armacologic stress. Multiplanar SPECT images were reviewed. FINDINGS: Small, mild area of diminished radiotracer uptake involves the inferior left ventricular m yocardium on rest and stress images probably secondary to attenuation from the diaphragm. Otherwise there is uniformity of radiotracer uptake involving the entire left ventricular myocardium on rest and stress sequences. The left ventricular ejection fraction equals 79% IMPRESSION: No evidence of stress-induced ischemia
[2023-05-12] MEDS ORDERED: ACETAMINOPHEN 500 MG TAB PO ONE (10:10)
[2023-05-12] MEDS: CEFDINIR 300 MG CAP PO SCH ×2 (10:45→11:53)
[2023-05-12 13:19] VITALS: BP 156/87; TEMP 99
--- NOTE | 2023-05-12 21:27 | PN ---
Date of Progress Note: 05/12/2023 Subjective: Seen by bedside. Review of Systems: No chest pain, shortness of breath, orthopnea, cough. No nausea, vomiting, diarrhea. All other syst ems reviewed are negative. Physical Examination: Vital Signs: Reviewed. Head and Neck: Pupils are equal, reactive to light. Intact eye movements. No JVD. No cervical lym phadenopathy. Neck is supple. Thyroid is not enlarged. Lungs: Clear to auscultation bilaterally with decreased breathing sounds. No accessory muscle use o r muscle retraction. Heart: Regular rate and rhythm. No extra sounds. Abdomen: Soft, nontender. Bowel sounds positive. No organomegaly. No masses or hernia. No rigidi ty or rebound. Extremities: No edema, clubbing, cyanosis. Intact pulses. Skin: No rash. Neurologic: Alert, awake, oriented x3. No acute focal deficits appreciated. Investigation: Labs reviewed. Assessment/recommendation: 1.Chest pain. Cardiac enzymes are negative. Stress test is negative. Echo was normal ejection fra ction. Pain is likely noncardiac. Patient can be released and follow up as an outpatient. [facility] ed patient to quit smoking. 2.Smoker. She was counseled to quit smoking. 3.Dyslipidemia. Continue statin. 4.Chronic obstructive pulmonary disease exacerbation. Appears to be doing better. From Cardiology standpoint, patient can be released and follow up as an outpatient. /MICHELLE Voice ID: [id number] Report ID: [id number]
--- NOTE | 2023-05-13 06:55 | TREADPHA ---
DX: CHEST PAIN Date of Study: 05/11/2023 Ht: 5' 7 " Wt: 150 lb 0 oz Consulting Physician: EZE MEDICATIONS: PROVENTIL, ASPIRIN, LIPITOR, CEFTRIAXONE, LOVENOX, MORPHINE, ZOFRAN HISTORY: 78 YEAR OLD FEMALE WITH COMPLAINTS OF CHEST PAIN. PHYSICIAL EXAMINATION: RESTING B.P.: 162/85 RESTING H.R.: 75 RESTING EKG: NORMAL SINUS RHYTHM WITH PREMATURE ATRIAL COMPLEXES PROTOCOL: PHARMACOLOGIC EXERCISE TIME: 3:30 B.P. AT PEAK STRESS: 136/72 IMPRESSION: LEXISCAN INJECTED. CARDIOLITE INJECTED (SEE NUCLEAR MEDICINE REPORT). NO COMPLAINTS OF CHEST PAIN. COMPLAINTS OF SHORTNESS OF BREATH. NO VENTRICULAR TACHYCARDIA/ SUPRAVENTRICULAR TACHYCARDIA. ONE PREMATURE VENTRICULAR COMPLEX NOTED IN RECOVERY PHASE. NO ELECTROCARDIOGRAM CHANGES OF ISCHEMIA WITH LEXISCAN.
== END 2023-05-12 14:50 | disposition home or self-care (01) | DRG 313 ==
LOC: ER 20:13 → 4TH 23:36 → OBSVTOIN 05-11 16:07
PROVIDERS: ADMIT Hospitalist; ATTEND Hospitalist
DX: R07.89 Other chest pain (principal); N39.0 Urinary tract infection, site not specified; J44.1 Chronic obstructive pulmonary disease with (acute) exacerbation; I10 Essential (primary) hypertension; E87.6 Hypokalemia; F17.210 Nicotine dependence, cigarettes, uncomplicated; R82.71 Bacteriuria; Z88.0 Allergy status to penicillin; Z71.6 Tobacco abuse counseling; Z90.49 Acquired absence of other specified parts of digestive tract; Z86.73 Personal history of transient ischemic attack (TIA), and cerebral infarction without residual deficits; Z90.710 Acquired absence of both cervix and uterus; Z79.899 Other long term (current) drug therapy; Z20.822 Contact with and (suspected) exposure to COVID-19
CPT/HCPCS: 36415; 71045; 71275; 78452; 80048; 80061; 80076; 81001; 83690; 83735; 83880; 84132; 84439; 84443; 84484; 85025; 85379; 85610; 87077; 87086; 87088; 87186; 87804; 87811; 93005; 93017; 93306; 96361; 96365; 96372; 96375; 99285; A9500; G0378; J0360; J0696; J1650; J2785; J2920; J7030; J7040; Q9967

== ENCOUNTER 2023-08-03 19:19 | Observation (INO) | payer OTHER ==
--- OUTSIDE RECORDS SUMMARY | 2023-08-03 19:22 | XMS REPORT | Continuity of Care Document ---
:1945 Author Organization [facility] t Address [address] [facility] [address] [place] [address] Care Team Providers Name Role Phone Susan Strauss MD Attending Clinician Payers Payer Name Policy Type Policy Number Effective Date Expiration Date S ource Problems Condition Condition Condition Status Onset Resolution Last Treating Co mments Source Name Details Category Date Date Treatment Clinician Date No known No known Disease Unive rs active active ity of problems problems [facility] Allergies, Adverse Reactions, Alerts Allergy Allergy Status Severity Reaction(s) Onset Inactive Treating Comm ents Source Name Type Date Date Clinician Aspirin Propensi Active Unknown - 2005- Univ ers ty to See comments 1-04 ity of adverse 00:00: [place] reaction 00 [facility] [place] Propensi Active Unknown - 2005-0 Uni vers ins ty to See comments 1-04 ity of adverse 00:00: [place] reaction 00 [facility] Social History Social Habit Start Date Stop Date Quantity Comments Source Sex Assigned At [facility] Tobacco use and 2019-07-19 2019-07-19 Never used Universit y of exposure 00:00:00 00:00:00 [facility] Cigarettes smoked 2019-07-19 2019-07-19 Univers ity of current (pack per 00:00:00 00:00:00 [facility] ) - Reported Branch Cigarette 2019-07-19 2019-07-19 University of pack-years 00:00:00 00:00:00 [facility] Alcohol intake 2019-07-19 2019-07-19 Ex-drinker [facility] 00:00:00 00:00:00 (finding) [facility] Tobacco Comment 2019-07-06 2019-07-06 1 pack a day Univers ity of 00:00:00 00:00:00 [facility] Smoking Status Start Date Stop Date Source Current every day smoker 2019-07-19 00:00:00 Uni versity of [facility] Medications Ordered Filled Start Stop Current Ordering Indication Dosage Frequency Signature Comments Components Source Medication Medication Date Date Medication? Clinician (SIG) Name Name lisinopril 2019-0 Yes [id number] 20mg Take 1 U nivers 20 mg 2-27 tablet by ity of tablet 00:00: mouth [place] 00 daily. Medical Branch tiotropium Yes [id number] 18ug Inhale 1 Univers (SPIRIVA 2-27 capsule ity of WITH 00:00: daily. [place] HANDIHALER) 00 Medical 18 mcg Branch inhalation lisinopril 0 Yes [id number] 20mg Take 1 U nivers 20 mg 2-27 tablet by ity of tablet 00:00: mouth [place] 00 daily. Medical Branch tiotropium Yes [id number] 18ug Inhale 1 Univers (SPIRIVA 2-27 capsule ity of WITH 00:00: daily. [place] HANDIHALER) 00 Medical 18 mcg Branch inhalation lisinopril 0 Yes [id number] 20mg Take 1 U nivers 20 mg 2-27 tablet by ity of tablet 00:00: mouth [place] 00 daily. Medical Branch tiotropium Yes [id number] 18ug Inhale 1 Univers (SPIRIVA 2-27 capsule ity of WITH 00:00: daily. [place] HANDIHALER) 00 Medical 18 mcg Branch inhalation [...] or Shortness of Breath. tiotropium 2018-09 Yes [id number] 1{puff} Inhale 1 Univers bromide 1-13 Puff ity of (SPIRIVA 00:00: daily. [place] RESPIMAT) 00 Medical 2.5 Branch mcg/actuati on Mist lisinopril 2018-09 Yes [id number] 20mg Take 1 U nivers 20 mg 1-13 tablet by ity of tablet 00:00: mouth [place] 00 daily. Medical Branch tiotropium 2018-09 2020- No [id number] 1{puff} Inhale 1 Univers bromide 1-13 02-27 Puff ity of (SPIRIVA 00:00: 00:00 daily. [place] RESPIMAT) 00 :00 Medical 2.5 Branch mcg/actuati on Mist lisinopril 2018-09 2020- No [id number] 20mg Take 1 Univers 20 mg 1-13 02-27 tablet by ity of tablet 00:00: 00:00 mouth [place] 00 :00 daily. Medical Branch docusate 2018-09 Yes [id number] 100mg Take 1 Un zoltan 100 mg 0-31 capsule by ity of capsule 00:00: mouth [place] 00 daily. Medical Branch docusate 2018-09 Yes [id number] 100mg Take 1 Un zoltan 100 mg 0-31 capsule by ity of capsule 00:00: mouth [place] 00 daily. Medical Branch docusate 2018-09 Yes [id number] 100mg Take 1 Un zoltan 100 mg 0-31 capsule by ity of capsule 00:00: mouth [place] 00 daily. Medical Branch docusate 2018-09 Yes [id number] 100mg Take 1 Un zoltan 100 mg 0-31 capsule by ity of capsule 00:00: mouth [place] 00 daily. Medical Branch Procedures This patient has no known procedures. Encounters Start End Encounter Admission Attending Care Care Encounter Source Date/Time Date/Time Type Type Clinicians Facility Department ID 2020-09-24 2020-09-24 Refill [place] [facility] 1.2.840.114 [id number] 00:00:00 00:00:00 , Susan Pediatric 350.1.13.10 M s and 4.2.7.2.686 Adult [id number] [address] 2020-09-24 2020-09-24 Refill [place] [facility] 1.2.840.114 [id number] [facility] 00:00:00 00:00:00 , Susan Pediatric 350.1.13.10 ity [place] [id number] [address] 2020-09-18 2020-09-18 Refill [place] [facility] 1.2.840.114 [id number] 00:00:00 00:00:00 , Susan Pediatric 350.1.13.10 M s and 4.2.7.2.686 Adult [id number] [address] 2020-09-18 2020-09-18 Refill [place] Y[facility] 1.2.840.114 [id number] Univers 00:00:00 00:00:00 , Susan Pediatric 350.1.13.10 ity [place] [id number] [address] 2019-11-01 2019-11-01 Refill [place] [facility] 1.2.840.114 [id number] 00:00:00 00:00:00 , Susan Pediatric 350.1.13.10 M s and 4.2.7.2.686 Adult [id number] [address] 2019-11-01 2019-11-01 Refill [place] 1.2.840.114 [id number] Univers 00:00:00 00:00:00 , Susan Pediatric 350.1.13.10 ity [place] [id number] [address] 2019-10-24 2019-10-24 Refill [place] 1.2.840.114 [id number] [facility] 00:00:00 00:00:00 , Susan Pediatric 350.1.13.10 ity [place] [id number] [address] 2019-10-24 2019-10-24 Refill [place] 1.2.840.114 [id number] 00:00:00 00:00:00 , Susan Pediatric 350.1.13.10 M s and 4.2.7.2.686 Adult [id number] [address] Results This patient has no known results.
[2023-08-03 19:51] LABS: Absolute Lymphocytes (CBC) 1.9 K/uL (0.7-4.9); Hematocrit 40.7 % (36.0-45.0); Lymphocytes % 18.2 % (15.3-44.8); MPV 7.2 fL (7.6-11.3); Platelets 372 thou/uL (152-406); RBC Red Blood Cell Count 4.47 M/uL (3.86-4.86)
[2023-08-03 19:53] LABS: Protime INR 1.05
[2023-08-03 20:00] LABS: Bilirubin Direct 0.1 mg/dL (0-0.2); Bilirubin Indirect, Calculated 0.2 mg/dL (0.2-0.8); Bilirubin Total 0.3 mg/dL (0.2-1.0); Magnesium 2.2 mg/dL (1.6-2.4); Potassium 3.6 mEq/L (3.5-5.1); Protein, Total 7.2 g/dL (6.4-8.2); Troponin High Sensitivity 15.1 pg/mL (<58.9)
[2023-08-03] MEDS ORDERED: ASPIRIN 81 MG CHEWABLE TABLET ONE (20:08)
[2023-08-03] MEDS ORDERED: LEVALBUTEROL 1.25 MG/3 ML NEB ONE (20:09)
[2023-08-03] MEDS ORDERED: NA CHLORIDE 0.9% 500 ML ONE (20:09)
[2023-08-03] MEDS ORDERED: IPRATROPIUM BROM 0.5MG/2.5ML ONE (20:09)
--- NOTE | 2023-08-03 20:28 | ER ---
Nurse's Notes [facility] Name: Ynay Steinberg Age: 78 yrs Sex: Female : 1945 Arrival Date: 08/03/2023 Time: 19:19 Bed 16 Private MD: Diagnosis: Chest pain, unspecified;Tobacco abuse counseling;Tobacco use;COPD/ Chronic obstructive pulmonary disease, unspecified Presentation: 08/03 19:21 Chief complaint: Patient states: SUBSTERNAL CHEST PAIN x2 DAYS. Coronavirus screen: At bp this time, the client does not indicate any symptoms associated with coronavirus-19. Ebola Screen: No symptoms or risks identified at this time. Initial Sepsis Screen: Does the patient meet any 2 criteria? No. Patient's initial sepsis screen is negative. Does the patient have a suspected source of infection? No. Patient's initial sepsis screen is negative. Risk Assessment: Do you want to hurt yourself or someone else? Patient reports no desire to harm self or others. Onset of symptoms is unknown. Care prior to arrival: Medication(s) given: ASA, 81 mg, x 4, zofran 4 mg, IV initiated. 22 GA, in the left antecubital area, Glucose check: 138. 19:21 Method Of Arrival: EMS: [facility] bp 19:21 Acuity: FRANCISCO 3 bp Triage Assessment: 19:24 General: Appears in no apparent distress. Behavior is calm, cooperative, appropriate bp for age. Pain: Complains of pain in mid-sternal area. EENT: No deficits noted. Neuro: No deficits noted. Cardiovascular: Reports chest pain, Rhythm is sinus rhythm. Historical: - Allergies: 19:24 PENICILLINS; bp - Home Meds: 19:24 losartan Oral [Active]; Albuterol Inhl [Active]; bp - PMHx: 19:24 CVA; Hypertension; bp - PSHx: 19:24 Total abdominal hysterectomy; bp - Immunization history:: Adult Immunizations up to date. - Social history:: Smoking status: Patient reports the use of cigarette tobacco products, unknown amount. - Family history:: not pertinent. Screenin:26 [facility] ED Fall Risk Assessment (Adult) History of falling in the last 3 months, bp including since admission No falls in past 3 months (0 pts). Abuse screen: Denies threats or abuse. Denies injuries from another. Nutritional screening: No deficits noted. Tuberculosis screening: No symptoms or risk factors identified. Assessment: 20:41 Reassessment: Patient and/or family updated on plan of care and expected duration. Pain vc1 level reassessed. Patient is alert, oriented x 3, equal unlabored respirations, skin warm/dry/pink. Patient denies pain at this time. Patient states feeling better. Patient states symptoms have improved. 20:41 Pain: Pain does not radiate. Pain began suddenly. vc1 21:57 Reassessment: No changes from previously documented assessment. Patient and/or family vc1 updated on plan of care and expected duration. Pain level reassessed. Patient is alert, oriented x 3, equal unlabored respirations, skin warm/dry/pink. Pain: Denies pain. 23:00 Reassessment: No changes from previously documented assessment. Patient and/or family vc1 updated on plan of care and expected duration. Pain level reassessed. Patient is alert, oriented x 3, equal unlabored respirations, skin warm/dry/pink. 08/04 00:00 Reassessment: No changes from previously documented assessment. Patient and/or family vc1 updated on plan of care and expected duration. Pain level reassessed. Patient is alert, oriented x 3, equal unlabored respirations, skin warm/dry/pink. 01:00 Reassessment: No changes from previously documented assessment. Patient and/or family vc1 updated on plan of care and expected duration. Pain level reassessed. Patient is alert, oriented x 3, equal unlabored respirations, skin warm/dry/pink. Vital Signs: 08/03 19:21 BP 175 / 93; Pulse 75; Resp 16; Temp 98.6; Pulse Ox 96% ; bp 20:15 BP 165 / 87; Pulse 74; Resp 17; Pulse Ox 100% ; vc1 21:00 BP 157 / 83; Pulse 75; Resp 17; Pulse Ox 100% ; vc1 21:45 BP 170 / 92; Pulse 68; Resp 16; Pulse Ox 100% ; vc1 23:00 BP 165 / 96; Pulse 57; Resp 17; Pulse Ox 99% ; vc1 23:45 BP 168 / 90; Pulse 56; Resp 17; Pulse Ox 97% ; vc1 08/04 01:00 BP 164 / 94; Pulse 56; Resp 16; Pulse Ox 97% ; vc1 ED Course: 08/03 19:20 Patient arrived in ED. bp 19:22 Roosevelt Eagle MD is Attending Physician. josemanuel 19:24 Triage completed. bp 19:24 Arm band placed on. bp 19:26 Patient has correct armband on for positive identification. Client placed on continuous bp cardiac and pulse oximetry monitoring. NIBP monitoring applied. 19:35 Tre Corcoran, RN is Primary Nurse. bp 20:00 Provided Education on: purewick. vc1 20:07 XRAY Chest (1 view) In Process Unspecified. EDMS 20:27 Munir Watters is Hospitalizing Provider. [facility] 08/04 01:00 No provider procedures requiring assistance completed. Patient admitted, IV remains in vc1 place. Patient maintains SpO2 saturation greater than 95% on room air. Administered Medications: 08/03 20:06 Drug: NS 0.9% IV 500 ml IV at bolus once Route: IV; Rate: bolus; Site: left antecubital;vc1 21:00 Follow up: IV Status: Completed infusion; IV Intake: 500ml vc1 20:06 Drug: Aspirin PO Chewable Tablet 162 mg PO once Route: PO; vc1 21:00 Follow up: Response: No adverse reaction vc1 20:06 Drug: Levalbuterol Inhalation 2.5 mg Inhalation once Route: Inhalation; vc1 20:06 Drug: Ipratropium Inhalation Aerosol 0.5 mg Inhalation once Route: Inhalation; vc1 21:21 Drug: Famotidine IVP 20 mg IVP once; dilute with 10 mL 0.9% NaCl; give over 2 minutes bp Route: IVP; Site: left antecubital; 22:00 Follow up: Response: No adverse reaction vc1 21:21 Drug: Metoprolol PO 50 mg PO once Route: PO; bp 23:00 Follow up: Response: No adverse reaction; Blood pressure is lowered vc1 Medication: 20:41 VIS not applicable for this client. vc1 Intake: 21:00 IV: 500ml; Total: 500ml. vc1 Outcome: 20:28 Decision to Hospitalize by Provider. [facility] 08/04 01:00 Admitted to ER Hold. Please see [facility] for further documentation. vc1 Condition: good Instructed on the need for admit, 09:33 Patient left the ED. ko1 Signatures: Dispatcher [employer] EDIN Roosevelt Eagle MD MD josemanuel Jewell, Tre, RN RN bp Ashly Aceves, RN RN vc1 Jolie Calzada RN RN ko1
--- NOTE | 2023-08-03 20:28 | EDPHYS ---
Physician Documentation [facility] Name: Yany Steinberg Age: 78 yrs Sex: Female : 1945 Arrival Date: 08/03/2023 Time: 19:19 Bed 16 Private MD: ED Physician Roosevelt Eagle HPI: 08/03 19:35 This 78 yrs old Female presents to ER via EMS with complaints of Chest Pain. josemanuel 19:35 The patient or guardian reports chest pain that is located primarily in the anterior josemaunel chest wall, bilaterally. Onset: 2 day(s) ago. The pain does not radiate. Associated signs and symptoms: The patient has no apparent associated signs or symptoms. The chest pain is described as aching. Modifying factors: The symptoms are alleviated by nothing. the symptoms are aggravated by nothing. Severity of pain: At its worst the pain was moderate in the emergency department the pain has resolved and did so just prior to arrival. The patient has experienced similar episodes in the past, a few times. Historical: - Allergies: 19:24 PENICILLINS; bp - Home Meds: 19:24 losartan Oral [Active]; Albuterol Inhl [Active]; bp - PMHx: 19:24 CVA; Hypertension; bp - PSHx: 19:24 Total abdominal hysterectomy; bp - Immunization history:: Adult Immunizations up to date. - Social history:: Smoking status: Patient reports the use of cigarette tobacco products, unknown amount. - Family history:: not pertinent. ROS: 19:35 Constitutional: Negative for fever, chills, and weight loss, Eyes: Negative for injury, josemanuel pain, redness, and discharge, ENT: Negative for injury, pain, and discharge, Neck: Negative for injury, pain, and swelling, Respiratory: Negative for shortness of breath, cough, wheezing, and pleuritic chest pain, Abdomen/GI: Negative for abdominal pain, nausea, vomiting, diarrhea, and constipation, Back: Negative for injury and pain, : Negative for injury, bleeding, discharge, and swelling, MS/Extremity: Negative for injury and deformity, Skin: Negative for injury, rash, and discoloration, Neuro: Negative for headache, weakness, numbness, tingling, and seizure, Psych: Negative for depression, anxiety, suicide ideation, homicidal ideation, and hallucinations, Allergy/Immunology: Negative for hives, rash, and allergies, Endocrine: Negative for neck swelling, polydipsia, polyuria, polyphagia, and marked weight changes, Hematologic/Lymphatic: Negative for swollen nodes, abnormal bleeding, and unusual bruising, 19:35 Cardiovascular: Positive for chest pain, 19:35 Respiratory: Positive for cough, Exam: 19:35 Constitutional: This is a well developed, well nourished patient who is awake, alert, josemanuel and in no acute distress. Head/Face: Normocephalic, atraumatic. Eyes: Pupils equal round and reactive to light, extra-ocular motions intact. Lids and lashes normal. Conjunctiva and sclera are non-icteric and not injected. Cornea within normal limits. Periorbital areas with no swelling, redness, or edema. ENT: Nares patent. No nasal discharge, no septal abnormalities noted. Tympanic membranes are normal and external auditory canals are clear. Oropharynx with no redness, swelling, or masses, exudates, or evidence of obstruction, uvula midline. Mucous membranes moist. Neck: Trachea midline, no thyromegaly or masses palpated, and no cervical lymphadenopathy. Supple, full range of motion without nuchal rigidity, or vertebral point tenderness. No Meningismus. Chest/axilla: Normal chest wall appearance and motion. Nontender with no deformity. No lesions are appreciated. Cardiovascular: Regular rate and rhythm with a normal S1 and S2. No gallops, murmurs, or rubs. Normal PMI, no JVD. No pulse deficits. Abdomen/GI: Soft, non-tender, with normal bowel sounds. No distension or tympany. No guarding or rebound. No evidence of tenderness throughout. Back: No spinal tenderness. No costovertebral tenderness. Full range of motion. Female : Normal external genitalia. Skin: Warm, dry with normal turgor. Normal color with no rashes, no lesions, and no evidence of cellulitis. MS/ Extremity: Pulses equal, no cyanosis. Neurovascular intact. Full, normal range of motion. Neuro: Awake and alert, GCS 15, oriented to person, place, time, and situation. Cranial nerves II-XII grossly intact. Motor strength 5/5 in all extremities. Sensory grossly intact. Cerebellar exam normal. Normal gait. Psych: Awake, alert, with orientation to person, place and time. Behavior, mood, and affect are within normal limits. 19:35 Respiratory: the patient does not display signs of respiratory distress, Respirations: normal, no acute changes, Breath sounds: rhonchi, that are mild, are scattered, Respiratory rate: 16 19:40 Musculoskeletal/extremity: Circulation is intact in all extremities. the chest and josemanuel mid-sternal area Compartment Syndrome exam of affected extremity: is normal. Weight bearing: able to fully bear weight, without difficulty, DVT Exam: No signs of deep vein thrombosis. no pain, no swelling, no tenderness, negative Homans' sign noted on exam, no appreciated bluish discoloration, no erythema, no increased warmth, 19:40 ECG was reviewed by the Attending Physician. [facility] Vital Signs: 19:21 BP 175 / 93; Pulse 75; Resp 16; Temp 98.6; Pulse Ox 96% ; bp 20:15 BP 165 / 87; Pulse 74; Resp 17; Pulse Ox 100% ; vc1 21:00 BP 157 / 83; Pulse 75; Resp 17; Pulse Ox 100% ; vc1 21:45 BP 170 / 92; Pulse 68; Resp 16; Pulse Ox 100% ; vc1 23:00 BP 165 / 96; Pulse 57; Resp 17; Pulse Ox 99% ; vc1 23:45 BP 168 / 90; Pulse 56; Resp 17; Pulse Ox 97% ; vc1 08/04 01:00 BP 164 / 94; Pulse 56; Resp 16; Pulse Ox 97% ; vc1 MDM: 08/03 19:22 Patient medically screened. [facility] 19:38 Differential diagnosis: abnormal EKG, acute myocardial infarction, acute pericarditis, josemanuel anxiety, coronary artery disease chest wall pain, congestive heart failure costochondritis, esophagitis, gastroesophageal reflux disease (GERD), hiatal hernia, pancreatitis, peptic ulcer disease, pneumonia, pneumothorax, pulmonary embolus, stable angina, unstable angina. HEART Score: History: Slightly Suspicious (0), ECG: Non specific repolarization disturbance / LBTB / PM (1), Age: > or = 65 years (2), Risk Factors: > or = 3 Risk factors for atherosclerotic disease (2), [Hypertension] [Active Smoker] [+ Family HX] Troponin: < or = 1 x Normal Limit (0). The patient was given aspirin in the Emergency Department. NO Risk Score: 1 - patient's age is greater or equal to 65 years, 1 - Three or more CAD risk factors, TOTAL SCORE = 2. Data reviewed: vital signs, nurses notes, EMS record, lab test result(s), EKG, radiologic studies, plain films. Consideration of Admission/Observation Patient was admitted/placed on observation. Escalation of care including admission/observation considered. I considered the following discharge prescriptions or medication management in the emergency department Medications were administered in the Emergency Department. See MAR. Independent interpretation of the following test(s) in the Emergency Department EKG: See my EKG interpretation above. Test considered but Not performed: CT: CT CHEST RO PE. 08/03 19:23 Order name: Basic Metabolic Panel; Complete Time: 20:25 [facility] 08/03 19:23 Order name: CBC with Diff; Complete Time: 20:25 [facility] 08/03 19:23 Order name: LFT's; Complete Time: 20:25 [facility] 08/03 19:23 Order name: Magnesium; Complete Time: 20:25 [facility] 08/03 19:23 Order name: NT PRO-BNP; Complete Time: 20:25 [facility] 08/03 19:23 Order name: PT-INR; Complete Time: 20:25 [facility] 08/03 19:23 Order name: Troponin HS; Complete Time: 20:25 [facility] 08/03 19:23 Order name: Lipase; Complete Time: 20:25 [facility] 08/03 19:23 Order name: Urinalysis w/ reflexes [facility] 08/03 20:44 Order name: Urinalysis w/ reflexes [facility] 08/03 20:45 Order name: Lipid Profile [facility] 08/03 20:45 Order name: Lipid Profile [facility] 08/03 20:45 Order name: Troponin High Sensitivity [facility] 08/03 20:45 Order name: Troponin High Sensitivity [facility] 08/03 20:45 Order name: Troponin High Sensitivity [facility] 08/03 20:45 Order name: Troponin High Sensitivity [facility] 08/03 19:23 Order name: XRAY Chest (1 view); Complete Time: 20:48 [facility] 08/03 19:23 Order name: EKG; Complete Time: 19:24 [facility] 08/03 19:23 Order name: Cardiac monitoring; Complete Time: 19:41 [facility] 08/03 19:23 Order name: EKG - Nurse/Tech; Complete Time: 19:41 [facility] 08/03 19:23 Order name: IV Saline Lock; Complete Time: 19:50 [facility] 08/03 19:23 Order name: Labs collected and sent; Complete Time: 19:50 [facility] 08/03 19:23 Order name: O2 Per Protocol; Complete Time: 19:35 [facility] 08/03 19:23 Order name: O2 Sat Monitoring; Complete Time: 19:35 [facility] EC:40 Rate is 68 beats/min. Rhythm is regular. QRS [place] is Normal. CA interval is normal. QRS josemanuel interval is normal. QT interval is normal. No Q waves. T waves are Normal. No ST changes noted. Clinical impression: NSR w/ Non-specific ST/T Changes and No evidence of ischemia. Interpreted by me. Reviewed by me. Administered Medications: 20:06 Drug: NS 0.9% IV 500 ml IV at bolus once Route: IV; Rate: bolus; Site: left antecubital;vc1 21:00 Follow up: IV Status: Completed infusion; IV Intake: 500ml vc1 20:06 Drug: Aspirin PO Chewable Tablet 162 mg PO once Route: PO; vc1 21:00 Follow up: Response: No adverse reaction vc1 20:06 Drug: Levalbuterol Inhalation 2.5 mg Inhalation once Route: Inhalation; vc1 20:06 Drug: Ipratropium Inhalation Aerosol 0.5 mg Inhalation once Route: Inhalation; vc1 21:21 Drug: Famotidine IVP 20 mg IVP once; dilute with 10 mL 0.9% NaCl; give over 2 minutes bp Route: IVP; Site: left antecubital; 22:00 Follow up: Response: No adverse reaction vc1 21:21 Drug: Metoprolol PO 50 mg PO once Route: PO; bp 23:00 Follow up: Response: No adverse reaction; Blood pressure is lowered vc1 Disposition Summary: 08/03/23 20:28 Hospitalization Ordered Notes: Hospitalization Status: Observation josemanuel Provider: Munir Watters cha Condition: Stable josemanuel Problem: new josemanuel Symptoms: have improved josemanuel Bed/Room Type: Standard josemanuel Location: Telemetry/MedSurg (observation)(08/04/23 08:40) bd Room Assignment: 404(08/04/23 08:40) bd Diagnosis - Chest pain, unspecified josemanuel - Tobacco abuse counseling josemanuel - Tobacco use josemanuel - COPD/ Chronic obstructive pulmonary disease, unspecified josemanuel Forms: - Medication Reconciliation Form josemanuel - SBAR form josemanuel - Leadership Thank You Letter josemanuel Signatures: Dispatcher [employer] Milana Silva Corey, MD MD cha Peltier, Brian, RN RN Shae Dubon RN RN lg3 Ashly Aceves RN RN vc1 Corrections: (The following items were deleted from the chart) 08/04 01:54 08/03 20:28 Telemetry/MedSurg (observation) [place] [id number] 08/04 01:54 08/03 20:28 [place] [id number] 08/04 08:40 01:[facility] lg[facility] bd 08:40 01:54 ERHOLD- lg3 bd
--- NOTE | 2023-08-03 20:36 | P.HP ---
Certification for Inpatient Patient admitted to: Observation With expected LOS: <2 Midnights Practitioner: I am a practitioner with admitting privileges, knowledge of patient current condition, hospital course, and medical plan of care. Services: Services provided to patient in accordance with Admission requirements found in Title 42 Section 412.3 of the Code of Federal Regulations Patient History Date of Service: 08/04/23 Reason for admission: Chest pain History of Present Illness: 78-year-old female patient medical history significant for hypertension, hyperlipidemia, history of dementia who came to the emergency room with complaint of chest pain. Patient reported chest pain elevated for 3 days intermittent in nature and associated with activity. She has no overt episode of nausea vomiting or feeling lightheaded. Pain was not radiating to the left arm or neck region. Because of her concerns that she was evaluated in the ED with EKG that showed no acute abnormality and initial troponin was within normal limits repeat troponin was also noted elevated however because of patient comorbid condition and age she was admitted for chest pain workup. Allergies Penicillins Allergy (Verified 07/10/22 14:51) UNK Home Medications: Losartan/Hydrochlorothiazide [Losartan-Hctz 50-12.5 mg Tab] 1 each PO DAILY 07/10/22 Donepezil HCl [Aricept] 1 tab PO BEDTIME 05/11/23 Gabapentin [Neurontin*] 1 tab PO BEDTIME 05/11/23 Sertraline [Zoloft*] 1 tab PO DAILY 05/11/23 Acetam/Caff/Butal [Fioricet] 1 tab PO Q12H PRN #20 tab 05/12/23 Aspirin [Aspirin EC 81 MG] 81 mg PO DAILY #30 tab 05/12/23 Atorvastatin Calcium [Lipitor] 10 mg PO BEDTIME #30 tab 05/12/23 Metoprolol Tartrate [Lopressor] 25 mg PO BID #60 tab 05/12/23 Smz./Tmp. [Bactrim Ds 800 MG/160 MG] 1 each PO DAILY #7 tab 05/12/23 - Past Medical/Surgical History Diabetic: No -: stroke 2003 -: HTN -: appendectomy -: cholecystectomy -: hysterectomy Psychosocial/ Personal History: Lives at home with son, [id number]. - Social History Alcohol use: No CD- Drugs: No Caffeine use: Yes Review of Systems General: Unremarkable Eyes: Unremarkable ENT: Unremarkable Respiratory: Unremarkable Cardiovascular: Chest Pain Gastrointestinal: Unremarkable Genitourinary: Unremarkable Musculoskeletal: Unremarkable Neurological: Unremarkable Physical Examination - Physical Exam General: Alert, Oriented x3 HEENT: Normocephalic Neck: Supple Respiratory: Normal air movement Cardiovascular: Regular rate/rhythm, Normal S1 S2 Gastrointestinal: Soft and benign Musculoskeletal: No swelling Neurological: Normal speech, Normal strength at 5/5 x4 extr - Studies Laboratory Data (last 24 hrs) 08/03/23 08/03/23 08/03/23 19:27 19:27 19:27 WBC 10.50 Hgb 13.7 Hct 40.7 Plt Count 372 PT 11.5 INR 1.05 Sodium 136 Potassium 3.6 BUN 11 Creatinine 0.77 Glucose 131 H Magnesium 2.2 Total Bilirubin 0.3 AST 43 H ALT 61 H Alkaline Phosphatase 73 Lipase 21 Assessment and Plan - Plan Chest pain: Symptoms are concerning for possible ACS. Will trend troponin, continue aspirin and statin therapy. She will continue on telemetry. Will obtain echocardiogram. Cardiology to be consulted. Hypertension: We will monitor vital signs per unit protocol and continue antihypertensive medications. Hyperlipidemia: We will continue statin therapy. Repeat lipid panel to be done today. Dementia: Will continue outpatient donepezil. Prophylaxis: Lovenox for DVT prophylaxis CODE STATUS: Full code Disposition she will be discharged once medically cleared by cardiology service. - Advance Directives Does patient have a Living Will: No Does patient have a Durable POA for Healthcare: No
--- NOTE | 2023-08-03 20:37 | RAD REPORT ---
EXAM DESCRIPTION: [place] Single View08/03/2023 8:06 pm CLINICAL HISTORY: Chest pain COMPARISON: May 2023 FINDINGS: The lungs appear clear of acute infiltrate. The heart is mildly enlarged. Loose bodies left shoulder IMPRESSION: No acute abnormalities displayed
[2023-08-03] MEDS ORDERED: FAMOTIDINE 20 MG/2 ML VIAL IV ONE (21:23)
[2023-08-03] MEDS ORDERED: METOPROLOL TAR 50 MG TAB ONE (21:23)
[2023-08-03 23:12] LABS: Specific Gravity 1.015 (1.005-1.030); Urine Bacteria <20 /HPF (<20); Urine Bilirubin NEGATIVE (Negative); Urine Blood Negative (Negative); Urine Clarity Extremely Turbid (Clear); Urine Color Yellow (Yellow); Urine Glucose NEGATIVE (Negative); Urine Mucus Slight /HPF (None Seen); Urine Protein NEGATIVE (Negative); Urine Urobilinogen Normal (Normal); Urine pH 5.5 (5.0-7.0)
[2023-08-04] MEDS ORDERED: NA CHLORIDE 0.9% 1,000 ML ONE (01:57)
[2023-08-04] MEDS: NA CHLORIDE 0.9% 1,000 ML IV SCH ×3 (02:04→19:57)
[2023-08-04 06:28] LABS: Troponin High Sensitivity 11.9 pg/mL (<58.9)
[2023-08-04] MEDS: ENOXAPARIN 40 MG/0.4 ML SQ SCH (09:00)
[2023-08-04] MEDS: ASPIRIN EC 81 MG TAB PO SCH (09:00)
[2023-08-04] MEDS ORDERED: ENOXAPARIN 40 MG/0.4 ML SQ ONE (09:25)
[2023-08-04] MEDS ORDERED: ASPIRIN EC 81 MG TAB PO ONE (09:25)
[2023-08-04] MEDS: ACETAMINOPHEN 325 MG TABLET PO PRN ×2 (14:20→18:24)
[2023-08-04 16:48] VITALS: O2SAT 95
--- NOTE | 2023-08-04 18:39 | P.PN ---
Date of Service: 08/04/23 Subjective: She is awake and feeling better this morning HARME[place] overnight ROS: 10 point ROS as noted above, otherwise negative Physical Exam General: Alert, Oriented x3 HEENT: Normocephalic Neck: Supple Respiratory: Normal air movement Cardiovascular: Regular rate/rhythm, Normal S1 S2 Gastrointestinal: Soft and benign Musculoskeletal: No swelling Neurological: Normal speech, Normal strength at 5/5 x4 extr Vitals reviewed Plan Chest pain: Symptoms are concerning for possible ACS. troponins trended flat, continue aspirin and statin therapy. She will continue on telemetry. Will obtain echocardiogram. Cardiology to be consulted. Hypertension: Restart home medications Hyperlipidemia: Restart home medication Dementia: Will continue outpatient donepezil. Prophylaxis: Lovenox for DVT prophylaxis CODE STATUS: Full code LOS 24 hours
[2023-08-04] MEDS: MORPHINE 2 MG/ML SYR IV PRN (19:53)
[2023-08-04] MEDS: ONDANSETRON 4 MG/2 ML VIAL IV PRN (19:54)
[2023-08-05 01:29] VITALS: BMI 22.9
[2023-08-05 06:08] LABS: Absolute Lymphocytes (CBC) 1.7 K/uL (0.7-4.9); Hematocrit 36.3 % (36.0-45.0); Lymphocytes % 25.7 % (15.3-44.8); MCV 92.1 fL (80-100); MPV 7.2 fL (7.6-11.3); Platelets 317 thou/uL (152-406); RBC Red Blood Cell Count 3.95 M/uL (3.86-4.86)
[2023-08-05 06:20] LABS: Potassium 3.8 mEq/L (3.5-5.1)
[2023-08-05] MEDS: MORPHINE 2 MG/ML SYR IV PRN (07:22)
[2023-08-05] MEDS: ONDANSETRON 4 MG/2 ML VIAL IV PRN (07:22)
[2023-08-05] MEDS: ASPIRIN EC 81 MG TAB PO SCH (08:05)
[2023-08-05] MEDS: ENOXAPARIN 40 MG/0.4 ML SQ SCH (08:05)
[2023-08-05 08:59] VITALS: BP 163/76; TEMP 97.7
[2023-08-05] MEDS ORDERED: SERTRALINE HCL 50 MG TAB PO SCH (09:00)
[2023-08-05] MEDS ORDERED: LOSARTAN/HCTZ 50-12.5 PO SCH (09:00)
[2023-08-05] MEDS ORDERED: METOPROLOL TAR 25 MG TAB PO SCH (09:00)
[2023-08-05 09:17] LABS: Blood Morphology Comment NOT SEEN (NOT SEEN); Platelet Estimate ADEQ; White Blood Cell Scan OK (OK)
--- NOTE | 2023-08-05 15:19 | EKG ---
Test Date: 2023-08-03 Test Time: 19:36:56 Supervisor [place] Placing: SHAYY MEASUREMENT RESULTS: Intervals: Rate: 68 OR: 200 QRSD: 90 QT: 432 QTc: 459 [place]: P: 77 OR: 200 QRS: 101 T: 99 INTERPRETIVE STATEMENTS: Normal sinus rhythm Inferior-posterior infarct, age undetermined Abnormal ECG Compared to ECG 05/09/2023 20:43:44 Right-axis deviation no longer present Incomplete right bundle-branch block no longer present Myocardial infarct finding still present Electronically Signed On 08-05-23 15:13:02 [employer]OR MANAGER by Federico Tapia
--- NOTE | 2023-08-05 16:34 | P.DS ---
Admission Date: 08/03/23 Discharge Date: 08/05/23 Disposition: ROUTINE DISCHARGE Discharge Condition: FAIR Reason for Admission: Chest pain Brief History of Present Illness: 78-year-old female patient medical history significant for hypertension, hyperlipidemia, history of dementia who came to the emergency room with complaint of chest pain. Patient reported chest pain for 3 or 3 days duration. Pain was not radiating to the left arm or neck region. Because of her concerns that she was evaluated in the ED with EKG that showed no acute abnormality and initial troponin was within normal limits. Patient was placed on observation for ACS rule out. Hospital Course: Chest pain: Troponins trended negative Patient treated with aspirin and statin therapy. Patient seen by cardiology. She had a negative nuclear stress test 2 months ago. Patient left-sided chest wall pain reproducible by palpation. Patient with atypical chest pain and recent negative stress test. ACS ruled out. She is deemed stable for discharge. Hypertension: Continued home medications Hyperlipidemia: Continued home medications Dementia: Continue home dose donepezil. UTI Urine culture grew gram-negative rods. Patient discharged with oral Levaquin. Vital Signs/Physical Exam: Temp Pulse Resp BP Pulse Ox 97.7 F 163 H 16 163/76 H 95 08/05/23 08:00 08/05/23 09:15 08/05/23 08:00 08/05/23 09:14 08/05/23 08:00 General: Alert, In no apparent distress, Oriented x3 HEENT: Mucous membr. moist/pink Neck: Supple, JVD not distended Respiratory: Clear to auscultation bilaterally, Normal air movement Cardiovascular: No edema, Regular rate/rhythm, Normal S1 S2 Gastrointestinal: Normal bowel sounds, Soft and benign, Non-distended Musculoskeletal: No swelling Integumentary: No rashes, No cyanosis Neurological: Normal strength at 5/5 x4 extr Laboratory Data at Discharge: WBC 6.50 thou/uL (4.3-10.9) 08/05/23 05:55 Hgb 12.2 g/dL (12.0-15.0) 08/05/23 05:55 Hct 36.3 % (36.0-45.0) 08/05/23 05:55 Plt Count 317 thou/uL (152-406) 08/05/23 05:55 PT 11.5 SECONDS (9.5-12.5) 08/03/23 19:27 INR 1.05 08/03/23 19:27 Sodium 140 mEq/L (136-145) 08/05/23 05:55 Potassium 3.8 mEq/L (3.5-5.1) 08/05/23 05:55 BUN 15 mg/dL (7-18) 08/05/23 05:55 Creatinine 0.57 mg/dL (0.55-1.02) 08/05/23 05:55 Glucose 86 mg/dL (74-106) 08/05/23 05:55 Phosphorus 2.0 mg/dL (2.5-4.9) L 08/05/23 05:55 Magnesium 2.0 mg/dL (1.6-2.4) 08/05/23 05:55 Total Bilirubin 0.3 mg/dL (0.2-1.0) 08/03/23 19:27 AST 43 U/L (15-37) H 08/03/23 19:27 ALT 61 U/L (13-56) H 08/03/23 19:27 Alkaline Phosphatase 73 U/L (45-117) 08/03/23 19:27 Triglycerides 45 mg/dL (<150) 08/04/23 05:58 Cholesterol 134 mg/dL (<200) 08/04/23 05:58 HDL Cholesterol 64 mg/dL (40-60) H 08/04/23 05:58 Cholesterol/HDL Ratio 2.09 08/04/23 05:58 Lipase 21 U/L (13-75) 08/03/23 19:27 Home Medications: Losartan/Hydrochlorothiazide [Losartan-Hctz 50-12.5 mg Tab] 1 each PO DAILY 07/10/22 Donepezil HCl [Aricept] 1 tab PO BEDTIME 05/11/23 Gabapentin [Neurontin*] 1 tab PO BEDTIME 05/11/23 Sertraline [Zoloft*] 1 tab PO DAILY 05/11/23 Acetam/Caff/Butal [Fioricet*] 1 tab PO Q12H PRN #20 tab 05/12/23 Atorvastatin Calcium [Lipitor*] 10 mg PO BEDTIME #30 tab 05/12/23 Metoprolol Tartrate [Lopressor*] 25 mg PO BID #60 tab 05/12/23 Aspirin [Aspirin EC] 81 mg PO DAILY #30 tab 08/05/23 Azithromycin Tab [Zithromax*] 250 mg PO ZPAK #1 gladys 08/05/23 guaiFENesin [Robitussin 100MG/5ML] 10 ml PO QID PRN #473 ml 08/05/23 levoFLOXacin [Levaquin] 500 mg PO DAILY #5 tab 08/05/23 New Medications: Aspirin [Aspirin EC] 81 mg PO DAILY #30 tab levoFLOXacin [Levaquin] 500 mg PO DAILY #5 tab guaiFENesin [Robitussin 100MG/5ML] 10 ml PO QID PRN #473 ml PRN Reason: Cough Azithromycin Tab [Zithromax*] 250 mg PO ZPAK #1 gladys Diet: AHA Activity: Ad ryan Followup: NONE,NONE [Primary Care Provider] - 1-2 Weeks (call to schedule an appointment) Time spent managing pt's care (in minutes): 29
[2023-08-05] MEDS ORDERED: ATORVASTATIN 10 MG TAB PO SCH (21:00)
[2023-08-05] MEDS ORDERED: GABAPENTIN 100 MG CAP PO SCH (21:00)
[2023-08-05] MEDS ORDERED: DONEPEZIL HCL 5 MG TAB PO SCH (21:00)
== END 2023-08-05 11:55 | disposition home or self-care (01) ==
LOC: ER 19:19 → ERHOLD 20:36 → 4TH 08-04 08:49
PROVIDERS: ADMIT Internal Medicine Nephrology; ATTEND Internal Medicine
DX: R07.9 Chest pain, unspecified (principal); I10 Essential (primary) hypertension; E78.5 Hyperlipidemia, unspecified; F03.90 Unspecified dementia, unspecified severity, without behavioral disturbance, psychotic disturbance, mood disturbance, and anxiety; N39.0 Urinary tract infection, site not specified; Z88.0 Allergy status to penicillin; Z86.73 Personal history of transient ischemic attack (TIA), and cerebral infarction without residual deficits; Z90.710 Acquired absence of both cervix and uterus; Z90.49 Acquired absence of other specified parts of digestive tract
CPT/HCPCS: 96361; 93005; 87088; 85025 ×2; 81001; 87086; 80048 ×2; 36415 ×2; 83735 ×2; 84100; 85610; 80061; 80076; 87077; 87186; 84484 ×3; 83690; 83880; 71045; 96374; 99285; J7614; J7644; J1650 ×3; J2270 ×2; J2405 ×2; J7040; J7030 ×2; G0378 ×5